=== PATIENT | female | born 1995 | race Caucasian/White ===

== ENCOUNTER 2018-10-27 11:07 | Inpatient (IN) | payer MEDICAID ==
[~2018-10-27] VITALS: Ht 149.9 cm; Wt 53.3 kg
[2018-10-27 12:03] VITALS: Ht 149.9 cm; Wt 53.3 kg
[2018-10-27 12:04] VITALS: BP 89/58; PULSE 100; RESP 18
[2018-10-27] MEDS ORDERED: PNV11TAB PO (12:06)
[2018-10-27] MEDS: LACTATED RINGER'S 1,000 ML IV SCH (14:38)
--- NOTE | 2018-10-27 15:00 | PN ---
Triage Information Date/Time Reason for visit: Abd/pelvic pain Weeks of Gestation Patient is a 23-year-old 2 para 1 at 26 weeks and 6 days of gestation with estimated date of delivery January 27, 2019 She presents with chief complaint of abdominal pain and right-sided lower back pain She reports positive movement, denies contractions, denies any vaginal bleeding or leaking fluid She denies any fever /Para 2 para 1 Diabetes: none Hypertention: none Objective Vital Signs Date Temp Pulse Resp B/P (MAP) Pulse Ox O2 O2 Flow FiO2 Time Delivery Rate 10/27/18 98.4 100 18 89/58 (68) 12:04 Heart Rate: 140's Heart Rate Comments heart rate tracing category 1 Contractions: None Results/Medications Results 24 hrs Laboratory Tests Test 10/27/18 11:10 Urine Color ABI Urine Clarity SLIGHTLY CLOUDY A Urine pH 6.0 Urine Specific [place] 1.015 Urine Ketones NEGATIVE Urine Nitrite NEGATIVE Urine Bilirubin 1+ H Urine Urobilinogen 2+ H Urine Leukocyte Esterase NEGATIVE Urine Microscopic RBC 0 Urine Microscopic WBC 2 Urine Hemoglobin NEGATIVE Urine Glucose NEGATIVE Urine Total Protein NEGATIVE Medications Current Medications Lactated Ringer's 1,000 ml @ 250 mls/hr Q4H IV Last administered on 10/27/18at 14:38; Admin Dose 250 MLS/HR; Start 10/27/18 at 13:30 Imaging Results PROCEDURE: Obstetric ultrasound CLINICAL INDICATION: Pain , labor TECHNIQUE: Multiple transverse and longitudinal grayscale images of the pelvis were obtained transabdominally and transvaginally.. COMPARISON: None FINDINGS: The cervix is closed with a length of 2.95 cm. There is a single live intrauterine gestation. Cardiac activity is present with 131 beats per minute. There is a vertex presentation. The placenta is anterior. There is no evidence for an abruption or placenta pr evia. MVP = 6.8 cm. RPTAT: AA IMPRESSION: Cervix length measures 2.95 cm. .Wes Phillips MD, MD Date Time Electronically viewed and signed by .Wes Phillips MD, MD on 10/27/2018 13:42 .S/ CC: ADRIANA MARIE MD [phone] Disposition: Discharge Assessment/Plan Patient received IV fluid She was instructed to increase p.o. hydration Urine culture was sent Patient instructed to follow-up with her own BANK CLERK in 1 to 2 days ADRIANA MARIE MD October 27, 2018 15:00
[2018-10-27] MEDS ORDERED: TERBUTALINE 1 MG/ML INJ SC ONE ×2 (15:30→17:00)
[2018-10-27] MEDS ORDERED: CEFTRIAXONE 1 GM/50 ML (PMX) 50 ML IVPB ONE (17:00)
--- NOTE | 2018-10-27 18:57 | HP ---
Date/Time of Note Date/Time of Note DATE: 10/27/18 TIME: 18:53 OB - History Hx of Present Free Text/Dictation Patient is a 23-year-old 2 para 1 at 26 weeks and 6 days of gestation with estimated date of delivery January 27, 2019 She presents with chief complaint of abdominal pain and right-sided lower back pain/right-sided CVA tenderness She reports positive movement, denies feeling contractions, denies any vaginal bleeding or leaking fluid She denies any fever Estimated Due Date: Jan 27, 2019 : 2 Para: 1 Care: Good Care Past Family/Social History * Past Medical, Surgical, Family and Obstetric Histories reviewed from chart. OB Admission Exam Vital Signs Vital Signs Vital Signs Date Temp Pulse Resp B/P (MAP) Pulse Ox O2 O2 Flow FiO2 Time Delivery Rate 10/27/18 98.4 100 18 89/58 (68) 12:04 Physical Exam HEENT: WNL Heart: Rhythm Normal Lungs: Clear, Equal Abdomen: WNL Extremities: Normal Reflexes: Normal Membranes: Intact Heart Rate: 140's Accelerations: Accelerations Present Decelerations: No Decelerations Varibility: Moderate Contractions on Admission: < 5 Minutes Apart Intensity: Moderate Last 72 hours Lab Results PROCEDURE: Obstetric ultrasound CLINICAL INDICATION: Pain , labor TECHNIQUE: Multiple transverse and longitudinal grayscale images of the pelvis were obtained transabdominally and transvaginally.. COMPARISON: None FINDINGS: The cervix is closed with a length of 2.95 cm. There is a single live intrauterine gestation. Cardiac activity is present with 131 beats per minute. There is a vertex presentation. The placenta is anterior. There is no evidence for an abruption or placenta previa. MVP = 6.8 cm. RPTAT: AA IMPRESSION: Cervix length measures 2.95 cm. .Wes Phillips MD, Date Time Electronically viewed and signed by .Wes Phillips MD, on 10/27/2018 13:42 .S/ CC: ADRIANA MARIE MD [id number] PROCEDURE: US OB. CLINICAL INDICATION: labor at 26 weeks gestational age. Uncertain size and dates. TECHNIQUE: Multiple sonographic images of the uterus were obtained. The images were reviewed on a PACS workstation. COMPARISON: No prior studies are available for comparison. FINDINGS: There is a single live intrauterine gestation. heart rate is 148 beats per minute. Measurements were made in order to determine age. The results are as follows: BPD = 7.45 cm. HC = 26.50 cm. AC = 22.56 cm. FL = 4.98 cm. Estimated weight is 1049 +/- 157 grams. LMP growth percentile is 55%. Menstrual age by ultrasound dates is 28 weeks 1 day. The estimated date of delivery is 01/18/2019. Position is cephalic and placenta is anterior grade 1. There is no evidence for an abruption or placenta previa. IMPRESSION: 1. Single live intrauterine gestation of 28 weeks 1 day gestational age by ultrasound dates. 2. The estimated date of delivery is 01/18/2019. RPTAT: QQ .Harsh Gandara MD, MD Date Time Electronically viewed and signed by .Harsh Gandara MD, MD on 10/27/2018 19:55 .R/ CC: ADRIANA MARIE MD [id number] OB Assessment/Plan Reason for admission: labor Other plan: Admit to antepartum Patient received IV fluid and terbutaline x2 doses and still nathaly We will start magnesium sulfate for prevention of labor and neuro protection Betamethasone for lung maturity Continue with IV antibiotics Urine culture pending Perinatology consult Copies To: CC: REID GRAVES ; ADRIANA MARIE MD October 27, 2018 18:57
[2018-10-27] MEDS ORDERED: MAGNESIUM SULFATE 4 GM/100 ML 100 ML IV ONE (19:00)
[2018-10-27] MEDS: CEFTRIAXONE 1 GM/50 ML (PMX) 50 ML IVPB SCH (19:00)
[2018-10-27] MEDS ORDERED: POTASSIUM CHLORIDE (SR) 10 MEQ TAB PO ONE (20:30)
[2018-10-27] MEDS: MAGNESIUM SULFATE 20 GM/500 ML 500 ML IV SCH (21:06)
[2018-10-27] MEDS: BETAMET NA PHOS/AC(6 MG/ML) 2 ML INJ SYG IM SCH (22:42)
[2018-10-28] MEDS: SOD CHLORIDE 0.9% 1,000 ML IV SCH ×2 (06:12→18:02)
[2018-10-28] MEDS: MAGNESIUM SULFATE 20 GM/500 ML 500 ML IV SCH (07:35)
[2018-10-28] MEDS ORDERED: POTASSIUM CHLORIDE (SR) 20 MEQ TAB PO ONE (08:00)
[2018-10-28] MEDS ORDERED: POTASSIUM CHLORIDE (SR) 10 MEQ TAB PO ONE (08:30)
[2018-10-28] MEDS ORDERED: POTASSIUM CHLORIDE (SR) 20 MEQ TAB PO STA (13:30)
[2018-10-28] MEDS ORDERED: POTASSIUM CHLORIDE (SR) 10 MEQ TAB PO SCH (14:00)
--- NOTE | 2018-10-28 18:01 | QN ---
Documentation Comment 27+wks labor No CTXs NST reassuring Portia No CTXs pelvic deferred --->Possible discharge home tomorrow --->stop Mg after 24 hrs of last dose of steroid YUE SUAREZ M.D. October 28, 2018 18:01
[2018-10-28] MEDS: CEFTRIAXONE 1 GM/50 ML (PMX) 50 ML IVPB SCH (19:21)
[2018-10-28] MEDS ORDERED: AL HYDROX/MG HYDROX/SIMETH 30 ML CUP PO PRN (21:00)
[2018-10-28] MEDS ORDERED: ACETAMINOPHEN 325 MG TAB PO PRN (21:00)
[2018-10-28] MEDS ORDERED: MAGNESIUM SULFATE 20 GM/500 ML 500 ML IV SCH (21:00)
[2018-10-28] MEDS: BETAMET NA PHOS/AC(6 MG/ML) 2 ML INJ SYG IM SCH (22:45)
[2018-10-29] MEDS: LACTATED RINGER'S 1,000 ML IV SCH ×5 (04:37→08:00)
[2018-10-29] MEDS: SOD CHLORIDE 0.9% 1,000 ML IV SCH ×7 (06:05→09:14)
[2018-10-29] MEDS: FERROUS SULFATE (EC) 325 MG TAB PO SCH ×3 (07:58→21:00)
[2018-10-29] MEDS: PRENATAL VITAMIN PO SCH (09:13)
--- NOTE | 2018-10-29 10:52 | QN ---
Documentation Comment 23-year-old 3 para 1 at 27 weeks and 1 day of this gestation with estimated date of delivery January 27, 2019 She was admitted for labor Status post steroids currently on magnesium sulfate which will be stopped at 10:40 PM Patient was noted to have elevated liver function test also complaining of right-sided abdominal pain and generalized itching Abdominal ultrasound today consistent with multiple cholelithiasis Bile acids were sent She reports positive movement, denies feeling contractions, denies any vaginal bleeding or leaking fluid She denies any fever heart rate tracing appropriate for gestational age [place] none Vital signs stable VS - Last 72 Hours, by Label Date Temp Pulse Resp B/P (MAP) Pulse Ox O2 O2 Flow FiO2 Time Delivery Rate 10/27/18 98.4 100 18 89/58 (68) 12:04 Hematology - 72 Hrs Test 10/27/18 19:00 10/28/18 23:19 10/29/18 06:10 Hematocrit 27.2 % (37.0-47.0) 28.1 % (37.0-47.0) 29.4 % (37.0-47.0) L L L Hemoglobin 9.4 9.5 9.5 g/dl (12.0-16.0) L g/dl (12.0-16.0) g/dl (12.0-16.0) L L Mean Corpuscular 32.1 pg (29.0-33.0) 31.8 33.1 Hemoglobin pg (29.0-33.0) pg (29.0-33.0) H Mean Corpuscular 34.6 33.8 32.3 Hemoglobin Concent g/dl (32.0-37.0) g/dl (32.0-37.0) g/dl (32.0-37.0) Mean Corpuscular 92.8 94.0 102.4 Volume fl (82.0-101.0) fl (82.0-101.0) fl (82.0-101.0) H Mean Platelet 11.6 fl (7.4-10.4) 11.8 fl (7.4-10.4) 12.7 fl (7.4-10.4) Volume H H H Platelet Count 232 258 265 10^3/UL (140-415) 10^3/UL (140-415) 10^3/UL (140-415) Red Blood Count 2.93 2.99 2.87 10^6/ul (4.20-5.40) 10^6/ul (4.20-5.40 10^6/ul (4.20-5.40 L ) L ) L Red Cell 12.6 % (11.5-14.5) 12.9 % (11.5-14.5) 13.0 % (11.5-14.5) Distribution Width White Blood Count 6.7 6.4 5.2 10^3/ul (4.8-10.8) 10^3/ul (4.8-10.8) 10^3/ul (4.8-10.8) Chemistry Test 10/27/18 19:00 10/28/18 00:29 10/28/18 05:32 10/28/18 12:09 Sodium Level 139 mmol/L (135-144 ) Potassium 2.4 2.9 3.3 Level mmol/L (3.5-5.1 mmol/L (3.5-5. mmol/L (3.5-5. ) *L 1) *L 1) L Chloride Level 104 mmol/L (97-110) Carbon Dioxide 22 Level mmol/L (21-31) Anion Gap 13 (5-13) Blood Urea 9 mg/dl (7-20) Nitrogen Creatinine 0.52 mg/dl (0.44-1.0 0) Est Glomerular > 60 Filtrat mL/min (>60) Rate mL/min Glucose Level 151 mg/dl (70-220) Calcium Level 8.6 mg/dl (8.4-10.2 ) Total 0.4 Bilirubin mg/dl (0.2-1.3) Direct 0.00 Bilirubin mg/dl (0.00-0.2 0) Indirect 0.4 Bilirubin mg/dl (0-1.1) Aspartate Amino 139 Transf (AST/SGO IU/L (15-46) H T) Alanine 188 Aminotransferas IU/L (13-69) H e (ALT/SGPT) Alkaline 237 Phosphatase IU/L (42-121) H Total Protein 6.5 g/dl (6.1-8.1) Albumin 3.1 g/dl (3.3-4.9) L Globulin 3.40 g/dl (1.3-3.2) H Albumin/Globuli 0.91 n Ratio Magnesium 5.9 7.5 6.7 Level mg/dl (1.7-2.5 mg/dl (1.7-2.5 mg/dl (1.7-2.5 ) *H ) *H ) *H Test 10/28/18 18:56 10/28/18 19:00 10/28/18 23:16 10/29/18 06:08 Potassium 3.6 3.6 3.9 Level mmol/L (3.5-5.1 mmol/L (3.5-5. mmol/L (3.5-5. ) 1) 1) Magnesium 6.9 6.0 6.0 Level mg/dl (1.7-2.5) mg/dl (1.7-2.5 mg/dl (1.7-2.5 *H ) *H ) *H Sodium Level 133 136 mmol/L (135-14 mmol/L (135-14 4) L 4) Chloride Level 102 107 mmol/L (97-110 mmol/L (97-110 ) ) Carbon Dioxide 22 21 Level mmol/L (21-31) mmol/L (21-31) Anion Gap 9 (5-13) 8 (5-13) Blood Urea 8 mg/dl 9 mg/dl Nitrogen (7-20) (7-20) Creatinine 0.55 0.47 mg/dl (0.44-1. mg/dl (0.44-1. 00) 00) Est Glomerular > 60 > 60 Filtrat mL/min (>60) mL/min (>60) Rate mL/min Glucose Level 153 178 mg/dl (70-220) mg/dl (70-220) Calcium Level 7.0 6.5 mg/dl (8.4-10. mg/dl (8.4-10. 2) L 2) L Total 0.4 0.4 Bilirubin mg/dl (0.2-1.3 mg/dl (0.2-1.3 ) ) Direct 0.00 0.00 Bilirubin mg/dl (0.00-0. mg/dl (0.00-0. 20) 20) Indirect 0.4 0.4 Bilirubin mg/dl (0-1.1) mg/dl (0-1.1) Aspartate Amino 209 183 Transf (AST/SGO IU/L (15-46) IU/L (15-46) T) H H Alanine 243 218 Aminotransferas IU/L (13-69) IU/L (13-69) e (ALT/SGPT) H H Alkaline 275 242 Phosphatase IU/L (42-121) IU/L (42-121) H H Total Protein 6.4 6.3 g/dl (6.1-8.1) g/dl (6.1-8.1) Albumin 3.3 3.1 g/dl (3.3-4.9) g/dl (3.3-4.9) L Globulin 3.10 3.20 g/dl (1.3-3.2) g/dl (1.3-3.2) Albumin/Globuli 1.06 0.96 n Ratio Laboratory Tests Test 10/28/18 12:09 10/28/18 18:56 10/28/18 19:00 10/28/18 23:16 Potassium Level 3.3 mmol/L 3.6 mmol/L 3.6 mmol/L Magnesium Level 6.7 mg/dl 6.9 mg/dl 6.0 mg/dl Sodium Level 133 mmol/L Chloride Level 102 mmol/L Carbon Dioxide 22 mmol/L Level Anion Gap 9 Blood Urea 8 mg/dl Nitrogen Creatinine 0.55 mg/dl Est Glomerular > 60 mL/min Filtrat Rate mL/min Glucose Level 153 mg/dl Calcium Level 7.0 mg/dl Total Bilirubin 0.4 mg/dl Direct Bilirubin 0.00 mg/dl Indirect Bilirubin 0.4 mg/dl Aspartate Amino 209 IU/L Transf (AST/SGOT) Alanine 243 IU/L Aminotransferase ( ALT/SGPT) Alkaline 275 IU/L Phosphatase Total Protein 6.4 g/dl Albumin 3.3 g/dl Globulin 3.10 g/dl Albumin/Globulin 1.06 Ratio Test 10/28/18 23:19 10/29/18 06:08 10/29/18 06:10 10/29/18 08:24 White Blood Count 6.4 10^3/ul 5.2 10^3/ul Red Blood Count 2.99 10^6/ul 2.87 10^6/ul Hemoglobin 9.5 g/dl 9.5 g/dl Hematocrit 28.1 % 29.4 % Mean Corpuscular 94.0 fl 102.4 fl Volume Mean Corpuscular 31.8 pg 33.1 pg Hemoglobin Mean Corpuscular 33.8 g/dl 32.3 g/dl Hemoglobin Concent Red Cell 12.9 % 13.0 % Distribution Width Platelet Count 258 10^3/UL 265 10^3/UL Mean Platelet 11.8 fl 12.7 fl Volume Immature 0.800 % 1.100 % Granulocytes % Neutrophils % 67.8 % 76.9 % Lymphocytes % 22.9 % 19.5 % Monocytes % 7.5 % 1.9 % Eosinophils % 0.8 % 0.2 % Basophils % 0.2 % 0.4 % Nucleated Red 0.0 /100WBC 0.0 /100WBC Blood Cells % Immature 0.050 10^3/ul 0.060 10^3/ul Granulocytes # Neutrophils # 4.3 10^3/ul 4.0 10^3/ul Lymphocytes # 1.5 10^3/ul 1.0 10^3/ul Monocytes # 0.5 10^3/ul 0.1 10^3/ul Eosinophils # 0.1 10^3/ul 0.0 10^3/ul Basophils # 0.0 10^3/ul 0.0 10^3/ul Nucleated Red 0.0 10^3/ul 0.0 10^3/ul Blood Cells # Sodium Level 136 mmol/L Potassium Level 3.9 mmol/L Chloride Level 107 mmol/L Carbon Dioxide 21 mmol/L Level Anion Gap 8 Blood Urea 9 mg/dl Nitrogen Creatinine 0.47 mg/dl Est Glomerular > 60 mL/min Filtrat Rate mL/min Glucose Level 178 mg/dl Calcium Level 6.5 mg/dl Magnesium Level 6.0 mg/dl Total Bilirubin 0.4 mg/dl Direct Bilirubin 0.00 mg/dl Indirect Bilirubin 0.4 mg/dl Aspartate Amino 183 IU/L Transf (AST/SGOT) Alanine 218 IU/L Aminotransferase ( ALT/SGPT) Alkaline 242 IU/L Phosphatase Total Protein 6.3 g/dl Albumin 3.1 g/dl Globulin 3.20 g/dl Albumin/Globulin 0.96 Ratio Hepatitis B NEGATIVE Surface Antigen Hepatitis B Core NEGATIVE Total Antibody Hepatitis C NEGATIVE Antibody Current Medications Medications Dose Sig/Blanca Start Time Status Last (Trade) Ordered Route PRN Stop Time Admin Dose Reason Admin Lactated 1,000 ml @ Q4H IV 10/27/18 DC 10/29/18 Ringer's 250 mls/hr 13:30 07:59 10/29/18 08:36 Terbutaline 0.25 mg ONCE ONCE 10/27/18 DC Sulfate SC 15:30 (Brethine) 10/27/18 15:31 Sodium 1,000 ml @ Q8H IV 10/27/18 10/29/18 Chloride 125 mls/hr 17:00 09:14 Ceftriaxone 50 ml @ ONCE ONCE 10/27/18 DC 10/27/18 Sodium 100 mls/hr IVPB 17:00 17:31 10/27/18 17:29 Terbutaline 0.25 mg ONCE ONCE 10/27/18 DC 10/27/18 Sulfate SC 17:00 16:44 (Brethine) 10/27/18 17:01 Sodium 1,000 ml @ Q8H IV 10/27/18 DC 10/28/18 Chloride 125 mls/hr 18:53 18:02 10/29/18 08:36 Magnesium 100 ml @ ONCE ONCE 10/27/18 DC 10/27/18 Sulfate 200 mls/hr IV 19:00 20:32 10/27/18 19:29 Magnesium 500 ml @ [id number] IV 10/27/18 DC 10/28/18 Sulfate 37.5 mls/hr 18:53 07:35 10/28/18 21:26 12 mg Q24H IM 10/27/18 DC 10/28/18 Betamethasone 19:00 22:45 10/28/18 19:01 Acet/Betameth SodPhos ([place]estone Soluspan) Ceftriaxone 50 ml @ Q24H IVPB 10/27/18 DC 10/28/18 Sodium 100 mls/hr 19:00 19:21 10/29/18 09:41 Potassium 30 meq ONCE ONCE 10/27/18 DC 10/27/18 Chloride PO 20:30 21:45 (Klor-Con 10) 10/27/18 20:31 Potassium 40 meq ONCE ONCE 10/28/18 DC Chloride PO 08:00 (Klor-Con 20) 10/28/18 08:01 Potassium 40 meq ONCE ONCE 10/28/18 DC 10/28/18 Chloride PO 08:30 08:20 (Klor-Con 10) 10/28/18 08:31 Potassium 20 meq ONCE STAT 10/28/18 DC Chloride PO 13:30 (Klor-Con 20) 10/28/18 13:32 Potassium 20 meq ONCE PO 10/28/18 DC 10/28/18 Chloride 14:00 14:28 (Klor-Con 10) 10/28/18 20:00 Magnesium 500 ml @ Q20H IV 10/28/18 10/28/18 Sulfate 25 mls/hr 21:00 21:50 Al 30 ml Q6H PRN 10/28/18 Hydrox/Mg PO 21:00 Hydrox/Simeth GASTROINTESTI icone NAL UPSET (Mag-Al Plus) 650 mg Q6H PRN 10/28/18 Acetaminophen PO MILD 21:00 (Tylenol PAIN(1-3)OR Tab) ELEVATED TEMP Prenat 1 tab DAILY PO 10/29/18 10/29/18 Multivit/ 09:00 09:13 [place]/Iron/Fo lic Ac () Ferrous 325 mg BID PO 10/28/18 10/29/18 Sulfate 21:00 09:13 (Ferrous Sulfate (Ec)) PROCEDURE: US Abdomen (right upper quadrant). CLINICAL INDICATION: Elevated liver enzymes in a patient with 27 weeks TECHNIQUE: Multiple real-time longitudinal and transverse images of the right upper quadrant of the abdomen were acquired utilizing a curved array transducer. Images were reviewed on a high-resolution PACS workstation. COMPARISON: None FINDINGS: The liver is normal in size and echogenicity without focal mass or intrahepatic biliary dilatation. There is normal hepatopedal flow within the main portal vein. Liver measures 14.4 cm. Multiple gallstones are identified. There is no pericholecystic fluid or gallbladder wall thickening . No intra or extrahepatic biliary dilatation is seen. The common bile duct measures 3 mm in maximal dimension. The visualized portions of the pancreas are unremarkable with obscuration of the tail of the pancreas. No free fluid is identified. The right kidney measures 10 cm in length. There is normal echogenicity within the right kidney. Mild to moderate right-sided hydronephrosis. There is no per inephric fluid collection. No mass or calculi. IMPRESSION: 1. Cholelithiasis with no evidence of cholecystitis. 2. No intrahepatic or extrahepatic biliary ductal dilation. 3. Mild to moderate right-sided hydronephrosis likely secondary to . RPTAT: PP karma Gamez Physician Date Time Electronically viewed and signed by karma Gamez Physician on 10/29/2018 09:09 rV/ CC: TAD FLORES MD [id number] Assessment and plan Discontinue IV antibiotics Continue with magnesium sulfate until 10:40 PM Perinatology consult pending Social service consult pain bleeding ADRIANA MARIE MD October 29, 2018 10:52
[2018-10-30] MEDS: PRENATAL VITAMIN PO SCH (09:19)
[2018-10-30] MEDS: FERROUS SULFATE (EC) 325 MG TAB PO SCH ×2 (09:19→22:06)
[2018-10-30] MEDS ORDERED: hydrOXYzine HCL 10 MG TAB NGT PRN (14:00)
[2018-10-30] MEDS ORDERED: URSODIOL 300 MG CAP PO SCH (16:00)
--- NOTE | 2018-10-31 01:08 | QN ---
Documentation Comment Late entry note. Patient seen at 1833 on 10/30/2018 23 years old 3 para 2-0-0-2 with single intrauterine at 27 weeks and 2 days admitted for threatened labor. 1. Threatened labor: she has received magnesium sulfate and betamethasone. Currently is steroid benefited. Cervical length is 2.9 cm. heart rate is category 1. She has occasional uterine contractions 2. Cholelithiasis with no evidence of cholecystitis. 3. Suspect cholestasis: Patient complaining of severe itching all over her body including palms and soles. Actigall 300 mg every 8 hours and hydroxyzine 10 mg every 12 hours started today. AST, ALT is elevated. Bile acid is pending 4. Elevated AST and ALT, could be secondary to cholelithiasis or cholestasis. 5. Anemia she is currently on ferrous sulfate 325 mg twice daily REID GRAVES October 31, 2018 01:08
[2018-10-31] MEDS: URSODIOL 300 MG CAP PO SCH ×3 (05:33→21:22)
[2018-10-31] MEDS: hydrOXYzine HCL 10 MG TAB PO PRN ×2 (05:33→17:03)
[2018-10-31] MEDS: PRENATAL VITAMIN PO SCH (08:53)
[2018-10-31] MEDS: FERROUS SULFATE (EC) 325 MG TAB PO SCH ×2 (08:53→21:22)
[2018-10-31] MEDS ORDERED: hydrOXYzine HCL 10 MG TAB PO ONE (12:00)
--- NOTE | 2018-11-01 02:32 | QN ---
Documentation Comment Late entry note. Patient seen at 21:00 on 10/31/2018 23 years old 3 para 2-0-0-2 with single intrauterine at 27 weeks and 3 days admitted for threatened labor. 1. Threatened labor: she has received magnesium sulfate and betamethasone. Currently is steroid benefited. Cervical length is 2.9 cm. heart rate is category 1. She has no uterine contractions 2. Cholelithiasis with no evidence of cholecystitis. 3. Suspect cholestasis: Patient complaining of severe itching all over her body including palms and soles. Actigall 300 mg every 8 hours and hydroxyzine 10 mg every 12 hours started yesterday. She is currently feeling much better. AST, ALT is elevated and increasing compared to yesterday. Bile acid is pending 4. Anemia she is currently on ferrous sulfate 325 mg twice daily REID GRAVES November 01, 2018 02:32
[2018-11-01] MEDS: hydrOXYzine HCL 10 MG TAB PO PRN ×2 (05:30→18:28)
[2018-11-01] MEDS: URSODIOL 300 MG CAP PO SCH ×3 (05:30→21:49)
[2018-11-01] MEDS: PRENATAL VITAMIN PO SCH (08:45)
[2018-11-01] MEDS: FERROUS SULFATE (EC) 325 MG TAB PO SCH ×2 (08:46→21:48)
--- NOTE | 2018-11-01 18:41 | PN ---
Date/Time of Note Date/Time of Note DATE: 11/01/18 TIME: 18:38 OB Subjective Subjective Subjective Patient comfortable. Denies any leaking of fluid, vaginal bleeding decreased movement or contractions. Reports mild itching of the both hands dorsum and palms as well as arms and lower extremity. She reports improvement of symptoms with ursodiol. 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09 OB Assessment/Plan Other Assessment: IUP at 27 weeks and 4 days Admitted for itching of extremities, especially palms and soles elevated Elevated liver function tests, history of cholestasis and prior to Bile acid pending Status post a steroid On today 300 mg p.o. 3 times daily and Atarax for itching Status post perinatology consultation Continue expectant management in house Follow-up with the results of bile acids Continuous NST every shift Will up with perinatologist tomorrow TYRONE LUIS MD November 01, 2018 18:41
[2018-11-02] MEDS: URSODIOL 300 MG CAP PO SCH ×3 (06:49→22:02)
[2018-11-02] MEDS: FERROUS SULFATE (EC) 325 MG TAB PO SCH ×2 (09:06→20:49)
[2018-11-02] MEDS: PRENATAL VITAMIN PO SCH (09:06)
[2018-11-02] MEDS: hydrOXYzine HCL 10 MG TAB PO PRN ×2 (09:08→22:02)
[2018-11-03] MEDS: URSODIOL 300 MG CAP PO SCH ×3 (06:11→21:55)
[2018-11-03] MEDS: hydrOXYzine HCL 10 MG TAB PO PRN (09:09)
[2018-11-03] MEDS: PRENATAL VITAMIN PO SCH (09:09)
[2018-11-03] MEDS: FERROUS SULFATE (EC) 325 MG TAB PO SCH ×2 (09:09→21:54)
[2018-11-03] MEDS ORDERED: POTASSIUM CHLORIDE (SR) 20 MEQ TAB PO STA (09:47)
--- NOTE | 2018-11-03 13:35 | QN ---
Documentation Comment 23-year-old 3 para 2 at 27 weeks and 5 days of gestation with estimated date of delivery January 27, 2019 Patient admitted for ; 1. labor status post magnesium sulfate, status post betamethasone for lung maturity 2. cholelithiasis with no evidence of cholecystitis 3. Suspected for cholestasis; total bile acids 9.8 currently on Actigall 300 mg every 8 hours and Atarax as needed 4. Hypokalemia-potassium replacement ordered 5. Anemia currently on iron Patient reports positive movement, denies uterine contractions, denies vaginal bleeding or leaking fluid heart rate tracing appropriate for gestational age Vital signs stable Chemistry Test 10/31/18 14:50 11/03/18 07:07 Sodium Level 133 mmol/L (135-144) L 133 mmol/L (135-144) L Potassium Level 3.4 mmol/L (3.5-5.1) L 2.8 mmol/L (3.5-5.1) *L Chloride Level 98 mmol/L (97-110) 95 mmol/L (97-110) L Carbon Dioxide Level 25 mmol/L (21-31) 28 mmol/L (21-31) Anion Gap 10 (5-13) 10 (5-13) Blood Urea Nitrogen 16 mg/dl (7-20) 15 mg/dl (7-20) Creatinine 0.67 mg/dl (0.44-1.00) 0.50 mg/dl (0.44-1.00) Est Glomerular Filtrat > 60 mL/min (>60) > 60 mL/min (>60) Rate mL/min Glucose Level 135 mg/dl (70-220) 120 mg/dl (70-220) Calcium Level 9.6 mg/dl (8.4-10.2) 9.6 mg/dl (8.4-10.2) Total Bilirubin 0.3 mg/dl (0.2-1.3) 0.4 mg/dl (0.2-1.3) Direct Bilirubin 0.00 mg/dl (0.00-0.20) 0.00 mg/dl (0.00-0.20) Indirect Bilirubin 0.3 mg/dl (0-1.1) 0.4 mg/dl (0-1.1) Aspartate Amino 318 IU/L (15-46) H 152 IU/L (15-46) H Transf (AST/SGOT) Alanine 416 IU/L (13-69) H 348 IU/L (13-69) H Aminotransferase (ALT/SGPT) Alkaline Phosphatase 220 IU/L (42-121) H 211 IU/L (42-121) H Total Protein 6.5 g/dl (6.1-8.1) 7.0 g/dl (6.1-8.1) Albumin 3.4 g/dl (3.3-4.9) 3.7 g/dl (3.3-4.9) Globulin 3.10 g/dl (1.3-3.2) 3.30 g/dl (1.3-3.2) H Albumin/Globulin Ratio 1.09 1.12 Assessment and plan We will discuss with Dr. Dumont/perinatologist regarding recommendations ADRIANA MARIE MD November 03, 2018 13:35
--- NOTE | 2018-11-04 01:09 | CONS ---
DATE OF ADMISSION: 10/27/2018 DATE OF CONSULTATION: 11/03/2018 TYPE OF CONSULTATION: Perinatology. HISTORY OF PRESENT ILLNESS: The patient is at 27 weeks and 6 days with cholestasis and liver enzymes elevation. She was started on Actigall 2 days ago. I spoke to the doctor diagnostic cardiac sonographer yesterday and the same today. My recommendation is for the patient to be discharged home on Actigall with t esting twice weekly. Dictated By: ROBBIE MIGUEL MD ST/NTS Conf#: [id number] DID#: [id number] CC: REID GRAVES MD;*EndCC*
[2018-11-04] MEDS ORDERED: POTASSIUM CHLORIDE (SR) 20 MEQ TAB PO ONE (02:55)
[2018-11-04] MEDS: URSODIOL 300 MG CAP PO SCH (06:12)
[2018-11-04] MEDS: FERROUS SULFATE (EC) 325 MG TAB PO SCH (09:56)
[2018-11-04] MEDS: PRENATAL VITAMIN PO SCH (09:56)
--- NOTE | 2018-11-04 13:31 | DS ---
Date/Time of Note Date/Time of Note DATE: 11/04/18 TIME: 13:31 Obstetrical Discharge Record Final Diagnosis Final Diagnosis: not delivered Other Final Diagnosis 23 years old 3 para 2-0-0-2 with single intrauterine at 27 weeks and 6 days admitted for threatened labor, cholelithiasis, cholecystitis with elevated liver enzyme. 1. Threatened labor: she has received magnesium sulfate and betamethasone. Currently is steroid benefited. Cervical length is 2.9 cm. heart rate is category 1. She has no uterine contractions 2. Cholelithiasis with no evidence of cholecystitis. 3. Cholestasis with elevated liver enzyme and bile acid of 9.8. She is currently on Actigall 300 mg every 8 hours and hydroxyzine 10 mg nightly. She is currently feeling much better. She discharged home with follow-up antepartum testing twice a week. She has appointment with perinatology on 11/07/2018. 4. Anemia she is currently on ferrous sulfate 325 mg twice daily Sign and symptom of labor, preeclampsia, kick count discussed in detail with patient. She expressed understanding. She discharged home in stable condition with follow-up antepartum testing as noted above. Patient discussed with Dr. Dumont, who recommended discharge home with above follow-up. Condition on Discharge Physical Assessment Voiding: Yes Bowel Movement: Yes Breast: Soft, non-tender Calf Tenderness: No Patient Condition: Stable REID GRAVES November 04, 2018 13:31
--- NOTE | 2018-11-04 13:31 | PN ---
Date/Time of Note Date/Time of Note DATE: 11/04/18 TIME: 13:24 OB Subjective Subjective Subjective Patient seen and examined. She states good movement. She denies nausea, vomiting, shortness of breath, chest pain, abdominal pain between contractions, headache, visual changes, vaginal bleeding or LOF. She states itching is decreasing since starting medication OB Objective Objective Objective General: Patient appears well, alert and oriented, NAD, appropriate mood and affect ABD: gravid, soft, non-tender. Back: No CVA tenderness (B/L) LE: Mild edema. No clubbing, cyanosis, edema, thigh or calf tenderness bilaterally FHT:.130 bpm , moderate variability with acceleration, no deceleration-category I Contractions: None OB Assessment/Plan Other plan: 23 years old 3 para 2-0-0-2 with single intrauterine at 27 weeks and 6 days admitted for threatened labor, cholelithiasis, cholecystitis with elevated liver enzyme. 1. Threatened labor: she has received magnesium sulfate and betamethasone. Currently is steroid benefited. Cervical length is 2.9 cm. heart rate is category 1. She has no uterine contractions 2. Cholelithiasis with no evidence of cholecystitis. 3. Cholestasis with elevated liver enzyme and bile acid of 9.8. She is currently on Actigall 300 mg every 8 hours and hydroxyzine 10 mg nightly. She is currently feeling much better. She discharged home with follow-up antepartum testing twice a week. She has appointment with perinatology on 11/07/2018. 4. Anemia she is currently on ferrous sulfate 325 mg twice daily Sign and symptom of labor, preeclampsia, kick count discussed in detail with patient. She expressed understanding. She discharged home in stable condition with follow-up antepartum testing as noted above. Patient discussed with Dr. Dumont, who recommended discharge home w ith above follow-up. REID GRAVES November 04, 2018 13:31
== END 2018-11-04 11:50 | disposition home or self-care (01) | DRG 831 ==
LOC: L-D 11:07 → OBT 11:07 → L-D 19:01 → PP1 10-28 23:57
PROVIDERS: ADMIT Obstetrics & Gynecology; ATTEND Obstetrics & Gynecology
DX: O99.612 Diseases of the digestive system complicating pregnancy, second trimester (principal); K83.1 Obstruction of bile duct; O26.612 Liver and biliary tract disorders in pregnancy, second trimester; O99.012 Anemia complicating pregnancy, second trimester; Z3A.27 27 weeks gestation of pregnancy
CPT/HCPCS: 36415; 76705; 76815; 76817; 76818; 80053; 81001; 81003; 83735; 83789; 84132; 85025; 86704; 86709; 86803; 87086; 87340; 96360; 96361; 96368; 96372; G0463; J0696; J0702; J3105; J3475; J7030; J7120

== ENCOUNTER 2018-11-05 12:46 | Outpatient (CLI) | payer MEDICAID ==
[~2018-11-05] VITALS: Ht 152.4 cm; Wt 55.3 kg
[~2018-11-05 12:46] MED LIST: PNV11TAB PO
[2018-11-05 12:53] VITALS: Ht 152.4 cm; Wt 55.3 kg
--- NOTE | 2018-11-05 14:31 | PN ---
Triage Information Date/Time Reason for visit: Patient is here for NST and BPP Weeks of Gestation 23-year-old 3 para 2 at 28 weeks and 1 day of gestation with estimated date of delivery January 27, 2019 Patient with gallstones and cholestasis of currently on Actigall Patient was recently discharged from the hospital for diagnosis of labor; status post magnesium sulfate; status post betamethasone for lung maturity She is here for NST and BPP Patient reports positive movement, denies vaginal bleeding leaking fluid, denies uterine contractions /Para 3 para 2 Diabetes: none Hypertention: none Additional information Gallstones and cholestasis of Objective Heart Rate: 140's Heart Rate Comments heart rate tracing appropriate for gestational age Contractions: None Results/Medications Imaging Results PROCEDURE: US OB biophysical profile. CLINICAL INDICATION: decreased movements, TECHNIQUE: Multiple sonographic images of the pelvis were obtained. The images were reviewed on a PACS workstation. COMPARISON: 10/30/18 FINDINGS: There is a single live intrauterine gestation. Cardiac activity is present with 152 beats per minute. There is a vertex presentation. The placenta is anterior. There is no evidence of placental abruption. ARIELA = 17.3 cm. Biophysical profile: movement 2/2 tone 2/2. breathing 2/2 ARIELA 2/2 Total 01/17 RPTAT: AA . IMPRESSION: Normal biophysical profile. . .Wes Phillips MD, Date Time Electronically viewed and signed by .Wes Phillips MD, on 11/05/2018 13:22 .S/ CC: REID GRAVES [id number] Disposition: Discharge Assessment/Plan kick count instructions were given Labor precautions were given Patient instructed to continue with Actigall Patient instructed to return in 48 hours for repeat NST and BPP Patient instructed to follow-up with [facility] in 1 to 2 days ADRIANA MARIE MD November 05, 2018 14:31
--- NOTE | 2018-11-05 14:31 | TRIAGE ---
OB Triage Datetime Report Generated by CPN: 11/05/2018 14:29 Datetime: 11/05/2018 14:26 Stage of : OB Triage Datetime: 11/05/2018 14:01 Maternal Assessment Level of Consciousness: Fully Conscious DTR's/Clonus: DTRs 1+ Headache: Denies Blurred Vision: No Respiratory Effort: Unlabored Breath Sounds, Left: Clear and Equal Breath Sounds, Right: Clear and Equal Nausea/Vomiting: Denies RUQ Epigastric Pain: Denies Facial Edema: None Labor Evaluation Frequency: NONE Monitor Mode: External Resting Tone [place]: Relaxed Heart Rate FHR Baseline Rate: 135 Monitor Mode: External US Variability: Moderate 6-25 bpm Accelerations: 15X15 Decelerations: None Category: Category I Pain Assessment Pain Scale: 0 Pain Presence: None/Denies Pain Type: N/A Pain Goal: 3 Vaginal Exam Membrane Status: Intact Datetime: 11/05/2018 13:14 Stage of : OB Triage Maternal Assessment Level of Consciousness: Fully Conscious DTR's/Clonus: DTRs 1+ Headache: Denies Breath Sounds, Left: Clear and Equal Breath Sounds, Right: Clear and Equal Nausea/Vomiting: Denies RUQ Epigastric Pain: Denies Labor Evaluation Frequency: NONE Monitor Mode: External Resting Tone [place]: Relaxed Heart Rate FHR Baseline Rate: 135 Monitor Mode: External US Variability: Moderate 6-25 bpm Accelerations: 15X15 Decelerations: None Category: Category I Pain Assessment Pain Scale: 0 Pain Presence: None/Denies Pain Type: N/A Pain Goal: 3 Vaginal Exam Membrane Status: Intact Datetime: 11/05/2018 12:32 Time of Arrival: 11/05/2018 12:32 EGA: 28.1 Arrived By: Ambulatory Arrived From: Home Chief Complaint: PT CAME IN FOR NST/BPP FOR CHOLESTASIS AND GALLSTONES Movement: Present Contractions: Denies/Absent Rupture of Membranes: Denies Vaginal Discharge: Denies Recent Sexual Intercouse: Denies Abdominal Trauma: Not Applicable Additional Patient Complaints: NONE Time Provider Notified: 11/05/2018 13:00 Provider Notified: FAZILAT Initial Plan: NST, BPP Datetime: 11/04/2018 11:17 Maternal Assessment Level of Consciousness: Fully Conscious Headache: Denies Blurred Vision: No Respiratory Effort: Unlabored Nausea/Vomiting: Denies RUQ Epigastric Pain: Denies Labor Evaluation Frequency: 0 Monitor Mode: External Resting Tone [place]: Relaxed Heart Rate FHR Baseline Rate: 145 Monitor Mode: External US Variability: Moderate 6-25 bpm Comments: fht's apporp. for ega 28.0 today Pain Presence: None/Denies Datetime: 11/04/2018 10:46 Stage of : Antepartum Maternal Assessment Level of Consciousness: Fully Conscious Headache: Denies Blurred Vision: No Respiratory Effort: Unlabored Nausea/Vomiting: Denies RUQ Epigastric Pain: Denies Datetime: 11/04/2018 07:16 Stage of : Antepartum Maternal Assessment Level of Consciousness: Fully Conscious DTR's/Clonus: DTRs 2+ Headache: Denies Blurred Vision: No Respiratory Effort: Unlabored Breath Sounds, Left: Clear and Equal Breath Sounds, Right: Clear and Equal Nausea/Vomiting: Denies RUQ Epigastric Pain: Denies Pain Presence: None/Denies Datetime: 11/04/2018 04:40 Temperature Route: Oral Pain Assessment Pain Scale: 0 Datetime: 11/03/2018 21:30 Labor Evaluation Frequency: 0 Monitor Mode: External Heart Rate FHR Baseline Rate: 140 Monitor Mode: External US FHR Baseline Changes: No Baseline Change Variability: Moderate 6-25 bpm Accelerations: 15X15 Decelerations: None Category: Category I Datetime: 11/03/2018 20:11 Assessment Type: Ongoing Assessment Maternal Assessment Level of Consciousness: Fully Conscious Maternal Assessment Level of Consciousness: Fully Conscious Headache: Denies Blurred Vision: No Respiratory Effort: Unlabored; Regular Rhythm; Equal Expansion Nausea/Vomiting: Denies RUQ Epigastric Pain: Denies Facial Edema: None Temperature Route: Oral Fall Risk Assessment History of Falling: (0) No Secondary Diagnosis: (0) No Ambulatory Aid: (0) Bedrest/Nurse Assist IV Therapy: (0) No Gait: (0) Normal/Bedrest/Immobile Mental Status: (0) Oriented to Own Ability Fall Score: 0 Fall Risk Score Definition: No Risk: No action required Pain Assessment Pain Scale: 0 Datetime: 11/03/2018 19:15 Stage of : Antepartum Datetime: 11/03/2018 15:27 Pain Presence: None/Denies Datetime: 11/03/2018 10:53 Comments: nst start Datetime: 11/03/2018 09:12 Labor Evaluation Frequency: 0 Monitor Mode: External Resting Tone [place]: Relaxed Datetime: 11/03/2018 09:02 Pain Presence: None/Denies Datetime: 11/03/2018 08:20 Assessment Type: Ongoing Assessment Maternal Assessment Level of Consciousness: Fully Conscious DTR's/Clonus: DTRs 2+; No Clonus Headache: Denies Blurred Vision: No Respiratory Effort: Unlabored; Regular Rhythm; Equal Expansion Breath Sounds, Left: Clear and Equal Breath Sounds, Right: Clear and Equal Nausea/Vomiting: Denies RUQ Epigastric Pain: Denies Facial Edema: None Fall Risk Assessment History of Falling: (0) No Secondary Diagnosis: (0) No Ambulatory Aid: (0) Bedrest/Nurse Assist Gait: (0) Normal/Bedrest/Immobile Mental Status: (0) Oriented to Own Ability Datetime: 11/03/2018 07:25 Stage of : Antepartum Datetime: 11/03/2018 07:15 Stage of : Antepartum Datetime: 11/03/2018 07:00 Labor Evaluation Frequency: none Monitor Mode: External Resting Tone [place]: Relaxed Pain Presence: None/Denies Pain Type: N/A Datetime: 11/03/2018 06:11 Stage of : Antepartum Datetime: 11/03/2018 06:00 Labor Evaluation Frequency: NONE Monitor Mode: External Resting Tone [place]: Relaxed Contraction Comments: PT DENIES CRAMPING Comments: PT STATES + FM Pain Presence: None/Denies Pain Type: N/A Datetime: 11/03/2018 05:00 Labor Evaluation Frequency: X2 Monitor Mode: External Duration (sec)2399: 40-60 Quality: Mild Resting Tone [place]: Relaxed Datetime: 11/03/2018 04:21 Stage of : Antepartum Pain Presence: None/Denies Pain Type: N/A Pain Assessment Comments: PT SLEEPING WITH EVEN UNLABORED BREATHING Datetime: 11/03/2018 04:00 Labor Evaluation Frequency: X3 Monitor Mode: External Duration (sec)2399: 40-80 Quality: Mild Resting Tone [place]: Relaxed Pain Presence: None/Denies Pain Type: N/A Datetime: 11/03/2018 03:00 Labor Evaluation Frequency: NONE Monitor Mode: External Resting Tone [place]: Relaxed Pain Presence: None/Denies Pain Type: N/A Datetime: 11/03/2018 02:00 Labor Evaluation Frequency: NONE Monitor Mode: External Resting Tone [place]: Relaxed Pain Presence: None/Denies Pain Type: N/A Pain Assessment Comments: PT SLEEPING BUT EASILY AROUSED Datetime: 11/03/2018 01:00 Labor Evaluation Frequency: NONE Monitor Mode: External Resting Tone [place]: Relaxed Pain Presence: None/Denies Pain Type: N/A Datetime: 11/03/2018 00:06 Stage of : Antepartum Temperature Route: Oral Pain Presence: None/Denies Pain Type: N/A Pain Assessment Comments: PT SLEEPING BUT EASILY AROUSED Datetime: 11/03/2018 00:00 Labor Evaluation Frequency: NONE Monitor Mode: External Resting Tone [place]: Relaxed Pain Presence: None/Denies Pain Type: N/A Datetime: 11/02/2018 23:00 Labor Evaluation Frequency: NONE Monitor Mode: External Quality: Mild Resting Tone [place]: Relaxed Pain Presence: None/Denies Pain Type: N/A Datetime: 11/02/2018 21:59 Labor Evaluation Frequency: X5 Monitor Mode: External Duration (sec)2399: 50-70 Quality: Mild Resting Tone [place]: Relaxed Heart Rate FHR Baseline Rate: 120 Monitor Mode: External US Variability: Moderate 6-25 bpm Accelerations: 15X15 Decelerations: None Category: Category I Pain Presence: None/Denies Pain Type: N/A Datetime: 11/02/2018 21:00 Labor Evaluation Frequency: X1 Monitor Mode: External Duration (sec)2399: 50 Quality: Mild Resting Tone [place]: Relaxed Pain Presence: None/Denies Pain Type: N/A Datetime: 11/02/2018 20:55 Monitor Mode: External US Comments: APPLIED FOR NST Datetime: 11/02/2018 20:00 Labor Evaluation Frequency: X6 Monitor Mode: External Duration (sec)2399: 30-50 Quality: Mild Resting Tone [place]: Relaxed Contraction Comments: PT DENIES FEELING CRAMPING Pain Presence: None/Denies Pain Type: N/A Datetime: 11/02/2018 19:19 Stage of : Antepartum Assessment Type: Ongoing Assessment Maternal Assessment Level of Consciousness: Fully Conscious DTR's/Clonus: DTRs 2+; No Clonus Headache: Denies Blurred Vision: No Respiratory Effort: Unlabored; Regular Rhythm; Equal Expansion Breath Sounds, Left: Clear and Equal Breath Sounds, Right: Clear and Equal Nausea/Vomiting: Denies RUQ Epigastric Pain: Denies Lower Extremities Edema: None Degree: None Upper Extremities Edema: None Degree: None Facial Edema: None Temperature Route: Oral Fall Risk Assessment History of Falling: (0) No Secondary Diagnosis: (0) No Ambulatory Aid: (0) Bedrest/Nurse Assist IV Therapy: (0) No Gait: (0) Normal/Bedrest/Immobile Mental Status: (0) Oriented to Own Ability Fall Score: 0 Fall Risk Score Definition: No Risk: No action required Monitor Mode: External Contraction Comments: PT DENIES CRAMPING AT THIS TIME Comments: PT STATES + FM Pain Presence: None/Denies Pain Type: N/A Vaginal Exam Membrane Status: Intact Vaginal Bleeding: None Datetime: 11/02/2018 19:00 Labor Evaluation Frequency: x1 Monitor Mode: External Duration (sec)2399: 50 Quality: Mild Pattern: Normal: <= 5 Contractions in 10 Minutes Resting Tone [place]: Relaxed Pain Presence: None/Denies Pain Type: N/A Pain Location: Abdomen Pain Goal: 0 Datetime: 11/02/2018 18:00 Labor Evaluation Frequency: x3 Monitor Mode: External Duration (sec)2399: 50-80 Quality: Mild Pattern: Normal: <= 5 Contractions in 10 Minutes Resting Tone [place]: Relaxed Pain Presence: None/Denies Pain Type: N/A Pain Location: Abdomen Pain Goal: 0 Datetime: 11/02/2018 17:55 Stage of : Antepartum Datetime: 11/02/2018 17:00 Labor Evaluation Frequency: x2 Monitor Mode: External Duration (sec)2399: 50-80 Quality: Mild Pattern: Normal: <= 5 Contractions in 10 Minutes Resting Tone [place]: Relaxed Pain Presence: None/Denies Pain Type: N/A Pain Location: Abdomen Pain Goal: 0 Datetime: 11/02/2018 16:02 Stage of : Antepartum Temperature Route: Oral Datetime: 11/02/2018 16:00 Labor Evaluation Frequency: x7 Monitor Mode: External Duration (sec)2399: 50-80 Quality: Mild Pattern: Normal: <= 5 Contractions in 10 Minutes Resting Tone [place]: Relaxed Pain Assessment Pain Scale: 1 Pain Presence: None/Denies Pain Type: N/A Pain Location: Abdomen Pain Goal: 0 Datetime: 11/02/2018 15:27 Stage of : Antepartum Datetime: 11/02/2018 15:00 Labor Evaluation Frequency: x3 Monitor Mode: External Duration (sec)2399: 70 Quality: Mild Pattern: Normal: <= 5 Contractions in 10 Minutes Resting Tone [place]: Relaxed Pain Assessment Pain Scale: 0 Pain Presence: None/Denies Pain Type: N/A Datetime: 11/02/2018 14:00 Labor Evaluation Frequency: x6 Monitor Mode: External Duration (sec)2399: 60 Quality: Mild Pattern: Normal: <= 5 Contractions in 10 Minutes Resting Tone [place]: Relaxed Pain Assessment Pain Scale: 0 Pain Presence: None/Denies Pain Type: N/A Datetime: 11/02/2018 13:00 Labor Evaluation Frequency: 0 Monitor Mode: External Pattern: Normal: <= 5 Contractions in 10 Minutes Resting Tone [place]: Relaxed Pain Assessment Pain Scale: 0 Pain Presence: None/Denies Pain Type: N/A Datetime: 11/02/2018 12:35 Stage of : Antepartum Temperature Route: Oral Pain Assessment Pain Scale: 0 Pain Presence: None/Denies Pain Type: N/A Datetime: 11/02/2018 12:00 Labor Evaluation Frequency: 0 Monitor Mode: External Quality: Mild Pattern: Normal: <= 5 Contractions in 10 Minutes Resting Tone [place]: Relaxed Pain Assessment Pain Scale: 0 Pain Presence: None/Denies Pain Type: N/A Datetime: 11/02/2018 11:00 Labor Evaluation Frequency: x8 Monitor Mode: External Duration (sec)2399: 60 Quality: Mild Pattern: Normal: <= 5 Contractions in 10 Minutes Resting Tone [place]: Relaxed Datetime: 11/02/2018 10:00 Labor Evaluation Frequency: x1 Monitor Mode: External Duration (sec)2399: 70 Quality: Mild Pattern: Normal: <= 5 Contractions in 10 Minutes Resting Tone [place]: Relaxed Heart Rate FHR Baseline Rate: 135 Monitor Mode: External US FHR Baseline Changes: No Baseline Change Variability: Minimal - Undetectable to <=5 bpm Accelerations: 10X10 Decelerations: None Pain Assessment Pain Scale: 0 Pain Presence: None/Denies Pain Type: N/A Datetime: 11/02/2018 09:13 Monitor Mode: External Monitor Mode: External US Comments: NST started Datetime: 11/02/2018 09:12 Stage of : Antepartum Temperature Route: Oral Pain Assessment Pain Scale: 0 Pain Presence: None/Denies Pain Type: N/A Datetime: 11/02/2018 09:00 Labor Evaluation Frequency: 0 Monitor Mode: External Pattern: Normal: <= 5 Contractions in 10 Minutes Resting Tone [place]: Relaxed Pain Assessment Pain Scale: 0 Pain Presence: None/Denies Pain Type: N/A Datetime: 11/02/2018 08:50 Stage of : Antepartum Datetime: 11/02/2018 08:00 Assessment Type: Ongoing Assessment Maternal Assessment Level of Consciousness: Fully Conscious DTR's/Clonus: DTRs 2+; No Clonus Headache: Denies Blurred Vision: No Respiratory Effort: Unlabored; Regular Rhythm; Equal Expansion Breath Sounds, Left: Clear and Equal Breath Sounds, Right: Clear and Equal Nausea/Vomiting: Denies RUQ Epigastric Pain: Denies Lower Extremities Edema: None Degree: None Upper Extremities Edema: None Degree: None Facial Edema: None Fall Risk Assessment History of Falling: (0) No Secondary Diagnosis: (0) No Ambulatory Aid: (0) Bedrest/Nurse Assist IV Therapy: (0) No Gait: (0) Normal/Bedrest/Immobile Mental Status: (0) Oriented to Own Ability Fall Score: 0 Fall Risk Score Definition: No Risk: No action required Labor Evaluation Frequency: x1 Monitor Mode: External Duration (sec)2399: 80 Quality: Mild Pattern: Normal: <= 5 Contractions in 10 Minutes Resting Tone [place]: Relaxed Pain Assessment Pain Scale: 0 Pain Presence: None/Denies Pain Type: N/A Datetime: 11/02/2018 07:00 Labor Evaluation Frequency: NONE Monitor Mode: External Resting Tone [place]: Relaxed Pain Presence: None/Denies Pain Type: N/A Datetime: 11/02/2018 06:49 Stage of : Antepartum Datetime: 11/02/2018 06:00 Stage of : Antepartum Labor Evaluation Frequency: NONE Monitor Mode: External Resting Tone [place]: Relaxed Pain Presence: None/Denies Pain Type: N/A Datetime: 11/02/2018 05:00 Labor Evaluation Frequency: NONE Monitor Mode: External Resting Tone [place]: Relaxed Pain Presence: None/Denies Pain Type: N/A Datetime: 11/02/2018 04:00 Labor Evaluation Frequency: NONE Monitor Mode: External Resting Tone [place]: Relaxed Pain Presence: None/Denies Pain Type: N/A Pain Assessment Comments: PT REMAINS ASLEEP ITH EVEN UNLABORED BREATHING Datetime: 11/02/2018 03:00 Labor Evaluation Frequency: NONE Monitor Mode: External Resting Tone [place]: Relaxed Pain Presence: None/Denies Pain Type: N/A Datetime: 11/02/2018 02:00 Labor Evaluation Frequency: X1 Monitor Mode: External Duration (sec)2399: 80 Quality: Mild Resting Tone [place]: Relaxed Pain Presence: None/Denies Pain Type: N/A Pain Assessment Comments: PT LEEPING BUT EASILY AROUSED Datetime: 11/02/2018 01:00 Labor Evaluation Frequency: NONE Monitor Mode: External Resting Tone [place]: Relaxed Pain Presence: None/Denies Pain Type: N/A Datetime: 11/02/2018 00:02 Stage of : Antepartum Temperature Route: Oral Datetime: 11/02/2018 00:00 Labor Evaluation Frequency: NONE Monitor Mode: External Resting Tone [place]: Relaxed Pain Presence: None/Denies Pain Type: N/A Pain Assessment Comments: PT SLEEPING BUT EASILY AROUSED. Datetime: 11/01/2018 23:00 Labor Evaluation Frequency: NONE Monitor Mode: External Resting Tone [place]: Relaxed Pain Presence: None/Denies Pain Type: N/A Datetime: 11/01/2018 22:00 Labor Evaluation Frequency: NONE Monitor Mode: External Resting Tone [place]: Relaxed Pain Presence: None/Denies Pain Type: N/A Datetime: 11/01/2018 21:49 Stage of : Antepartum Datetime: 11/01/2018 21:36 Stage of : Antepartum Labor Evaluation Frequency: X2 Monitor Mode: External Duration (sec)2399: 50 Quality: Mild Resting Tone [place]: Relaxed Heart Rate FHR Baseline Rate: 140 Monitor Mode: External [place] Variability: Moderate 6-25 bpm Accelerations: 15X15 Decelerations: None Category: Category I Pain Presence: None/Denies Pain Type: N/A Datetime: 11/01/2018 19:57 Monitor Mode: External US Comments: APPLIED FOR NST Datetime: 11/01/2018 19:54 Labor Evaluation Frequency: NONE Monitor Mode: External Resting Tone [place]: Relaxed Pain Presence: None/Denies Pain Type: N/A Datetime: 11/01/2018 19:46 Assessment Type: Ongoing Assessment Maternal Assessment Level of Consciousness: Fully Conscious DTR's/Clonus: DTRs 2+; No Clonus Headache: Denies Blurred Vision: No Respiratory Effort: Unlabored; Regular Rhythm; Equal Expansion Breath Sounds, Left: Clear and Equal Breath Sounds, Right: Clear and Equal Nausea/Vomiting: Denies RUQ Epigastric Pain: Denies Lower Extremities Edema: None Degree: None Upper Extremities Edema: None Degree: None Facial Edema: None Temperature Route: Oral Fall Risk Assessment History of Falling: (0) No Secondary Diagnosis: (0) No Ambulatory Aid: (0) Bedrest/Nurse Assist IV Therapy: (0) No Gait: (0) Normal/Bedrest/Immobile Mental Status: (0) Oriented to Own Ability Fall Score: 0 Fall Risk Score Definition: No Risk: No action required Monitor Mode: External Contraction Comments: PT DENIES CRAMPING Comments: PT STATES + FM Pain Presence: None/Denies Pain Type: N/A Vaginal Exam Membrane Status: Intact Vaginal Bleeding: None Datetime: 11/01/2018 19:00 Labor Evaluation Frequency: NONE Monitor Mode: External Pattern: Normal: <= 5 Contractions in 10 Minutes Resting Tone [place]: Relaxed Datetime: 11/01/2018 18:00 Labor Evaluation Frequency: OCCAISONAL Monitor Mode: External Duration (sec)2399: 30-60 Quality: Mild Pattern: Normal: <= 5 Contractions in 10 Minutes Resting Tone [place]: Relaxed Datetime: 11/01/2018 17:00 Labor Evaluation Frequency: NON, IRRITABILITY NOTED Datetime: 11/01/2018 16:00 Labor Evaluation Frequency: OCCASIONAL Monitor Mode: External Duration (sec)2399: 30-40 Quality: Mild Pattern: Normal: <= 5 Contractions in 10 Minutes Resting Tone [place]: Relaxed Datetime: 11/01/2018 15:53 Temperature Route: Oral Datetime: 11/01/2018 15:00 Labor Evaluation Frequency: NONE Monitor Mode: External Pattern: Normal: <= 5 Contractions in 10 Minutes Resting Tone [place]: Relaxed Datetime: 11/01/2018 14:00 Labor Evaluation Frequency: NONE Monitor Mode: External Pattern: Normal: <= 5 Contractions in 10 Minutes Resting Tone [place]: Relaxed Datetime: 11/01/2018 13:00 Labor Evaluation Frequency: NONE Monitor Mode: External Pattern: Normal: <= 5 Contractions in 10 Minutes Resting Tone [place]: Relaxed Datetime: 11/01/2018 11:51 Labor Evaluation Frequency: NONE Monitor Mode: External Pattern: Normal: <= 5 Contractions in 10 Minutes Resting Tone [place]: Relaxed Heart Rate FHR Baseline Rate: 145 Monitor Mode: External US FHR Baseline Changes: No Baseline Change Variability: Moderate 6-25 bpm Accelerations: 15X15 Decelerations: None Category: Category I Datetime: 11/01/2018 11:00 Labor Evaluation Frequency: NONE Monitor Mode: External Pattern: Normal: <= 5 Contractions in 10 Minutes Resting Tone [place]: Relaxed Datetime: 11/01/2018 09:58 Labor Evaluation Frequency: NONE Monitor Mode: External Pattern: Normal: <= 5 Contractions in 10 Minutes Resting Tone [place]: Relaxed Datetime: 11/01/2018 09:00 Labor Evaluation Frequency: X2 Monitor Mode: External Duration (sec)2399: 50-70 Quality: Mild Pattern: Normal: <= 5 Contractions in 10 Minutes Resting Tone [place]: Relaxed Datetime: 11/01/2018 08:46 Temperature Route: Oral Datetime: 11/01/2018 08:00 Labor Evaluation Frequency: X2 Monitor Mode: External Duration (sec)2399: 50-60 Quality: Mild Pattern: Normal: <= 5 Contractions in 10 Minutes Resting Tone [place]: Relaxed Datetime: 11/01/2018 07:54 Assessment Type: Ongoing Assessment Maternal Assessment Level of Consciousness: Fully Conscious DTR's/Clonus: DTRs 2+; No Clonus Headache: Denies Blurred Vision: No Respiratory Effort: Unlabored; Regular Rhythm; Equal Expansion Breath Sounds, Left: Clear and Equal Breath Sounds, Right: Clear and Equal Nausea/Vomiting: Denies RUQ Epigastric Pain: Denies Lower Extremities Edema: None Upper Extremities Edema: None Facial Edema: None Fall Risk Assessment History of Falling: (0) No Secondary Diagnosis: (0) No Ambulatory Aid: (0) Bedrest/Nurse Assist IV Therapy: (0) No Gait: (0) Normal/Bedrest/Immobile Mental Status: (0) Oriented to Own Ability Fall Score: 0 Fall Risk Score Definition: No Risk: No action required Datetime: 11/01/2018 06:30 Labor Evaluation Frequency: 0 Monitor Mode: External Duration (sec)2399: denies Resting Tone [place]: Relaxed Pain Presence: None/Denies Datetime: 11/01/2018 05:30 Maternal Assessment Level of Consciousness: Fully Conscious Headache: Denies Blurred Vision: No Temperature Route: Oral Labor Evaluation Frequency: X4 Monitor Mode: External Duration (sec)2399: 40-60 Quality: Mild Resting Tone [place]: Relaxed Pain Presence: None/Denies Vaginal Exam Membrane Status: Intact Datetime: 11/01/2018 04:30 Labor Evaluation Frequency: OCCASIONAL Monitor Mode: External Duration (sec)2399: 40-50 Quality: Mild Resting Tone [place]: Relaxed Pain Presence: None/Denies Datetime: 11/01/2018 03:30 Labor Evaluation Frequency: 0 Monitor Mode: External Resting Tone [place]: Relaxed Pain Presence: None/Denies Datetime: 11/01/2018 02:30 Stage of : RESUMED CARE OF PT. Labor Evaluation Frequency: X3 Monitor Mode: External Duration (sec)2399: 40-60 Quality: Mild Resting Tone [place]: Relaxed Pain Presence: None/Denies Datetime: 11/01/2018 01:30 Labor Evaluation Frequency: 0 Monitor Mode: External Duration (sec)2399: DENIES Resting Tone [place]: Relaxed Pain Presence: None/Denies Datetime: 11/01/2018 00:30 Labor Evaluation Frequency: 0 Monitor Mode: External Duration (sec)2399: DENIES Resting Tone [place]: Relaxed Pain Presence: None/Denies Datetime: 10/31/2018 23:34 Labor Evaluation Frequency: OCCASIONAL Monitor Mode: External Duration (sec)2399: 40-70 Quality: Mild Resting Tone [place]: Relaxed Heart Rate FHR Baseline Rate: 145 Monitor Mode: External US Variability: Moderate 6-25 bpm Accelerations: 15X15 Decelerations: None Category: Category I Comments: NST DONE,SOME LOSS OF CONTACT AT TIMES PT WAS KEPT LONGER ON MONITOR,REACTIVE STRIP. Pain Presence: None/Denies Pain Assessment Comments: PT DENIES FEELING ANY UC'S. Datetime: 10/31/2018 22:31 Comments: PLACED NST STARTED Datetime: 10/31/2018 22:00 Labor Evaluation Frequency: X2 Monitor Mode: External Duration (sec)2399: 40-50 Quality: Mild Resting Tone [place]: Relaxed Pain Presence: None/Denies Datetime: 10/31/2018 21:00 Labor Evaluation Frequency: IRREGULAR Monitor Mode: External Duration (sec)2399: 40-50 Quality: Mild Resting Tone [place]: Relaxed Pain Presence: None/Denies Datetime: 10/31/2018 20:00 Labor Evaluation Frequency: OCCASIONAL Monitor Mode: External Duration (sec)2399: 40 Quality: Mild Resting Tone [place]: Relaxed Pain Presence: None/Denies Datetime: 10/31/2018 19:39 Stage of : Antepartum Assessment Type: Ongoing Assessment Maternal Assessment Level of Consciousness: Fully Conscious DTR's/Clonus: DTRs 2+; No Clonus Headache: Denies Blurred Vision: No Respiratory Effort: Unlabored; Regular Rhythm; Equal Expansion Breath Sounds, Left: Clear and Equal Breath Sounds, Right: Clear and Equal Nausea/Vomiting: Denies RUQ Epigastric Pain: Denies Lower Extremities Edema: None Degree: None Upper Extremities Edema: None Degree: None Facial Edema: None Temperature Route: Oral Fall Risk Assessment History of Falling: (0) No Secondary Diagnosis: (0) No Ambulatory Aid: (0) Bedrest/Nurse Assist IV Therapy: (0) No Gait: (0) Normal/Bedrest/Immobile Mental Status: (0) Oriented to Own Ability Fall Score: 0 Fall Risk Score Definition: No Risk: No action required Pain Presence: None/Denies Datetime: 10/31/2018 18:28 Assessment Type: Ongoing Assessment Datetime: 10/31/2018 18:25 Contraction Comments: toco flipped, repositioned Datetime: 10/31/2018 18:00 Labor Evaluation Frequency: 5-10 Monitor Mode: External Duration (sec)2399: 5-10 Quality: Mild Resting Tone [place]: Relaxed Contraction Comments: pt states "doesn't feel uc's" Datetime: 10/31/2018 17:00 Maternal Assessment Level of Consciousness: Fully Conscious DTR's/Clonus: DTRs 2+ Headache: Denies Blurred Vision: No Respiratory Effort: Unlabored Nausea/Vomiting: Denies RUQ Epigastric Pain: Denies Facial Edema: None Labor Evaluation Frequency: 03-28 Monitor Mode: External Duration (sec)2399: 10-30 Quality: Mild Pattern: Normal: <= 5 Contractions in 10 Minutes Resting Tone [place]: Relaxed Contraction Comments: pt doesn't feel uc's Comments: off per drs orders Pain Assessment Pain Scale: 0 Pain Presence: None/Denies Pain Relief Measures: Comfort Measures Pain Assessment Comments: "i don't feel uc's" states pt Datetime: 10/31/2018 16:30 Maternal Assessment Level of Consciousness: Fully Conscious DTR's/Clonus: DTRs 2+ Headache: Denies Blurred Vision: No Nausea/Vomiting: Denies RUQ Epigastric Pain: Denies Facial Edema: None Labor Evaluation Frequency: 5-12 Monitor Mode: External Duration (sec)2399: 10-30 Quality: Mild Resting Tone [place]: Relaxed Contraction Comments: "I don't feel the uc's" states pt Comments: off per dr orders Datetime: 10/31/2018 14:17 Comments: off to go void, end of nst Datetime: 10/31/2018 13:40 Comments: reactive for geatational age Datetime: 10/31/2018 13:39 Heart Rate FHR Baseline Rate: 145 Monitor Mode: External US Variability: Moderate 6-25 bpm Accelerations: 10X10 Decelerations: None Category: Category I Datetime: 10/31/2018 12:59 Comments: nst started Datetime: 10/31/2018 12:30 Maternal Assessment Level of Consciousness: Fully Conscious DTR's/Clonus: DTRs 2+ Headache: Denies Blurred Vision: No Nausea/Vomiting: Denies RUQ Epigastric Pain: Denies Facial Edema: None Labor Evaluation Frequency: 10-15 Monitor Mode: External Duration (sec)2399: 10-30 Quality: Mild Resting Tone [place]: Relaxed Contraction Comments: reapplied after shower Comments: off per order Pain Assessment Pain Scale: 0 Pain Presence: None/Denies Pain Type: N/A Pain Goal: 0 Pain Relief Measures: Comfort Measures Vaginal Exam Membrane Status: Intact Datetime: 10/31/2018 09:00 Maternal Assessment Level of Consciousness: Fully Conscious DTR's/Clonus: DTRs 2+ Headache: Denies Blurred Vision: No Nausea/Vomiting: Denies RUQ Epigastric Pain: Denies Facial Edema: None Datetime: 10/31/2018 08:30 Maternal Assessment Level of Consciousness: Fully Conscious DTR's/Clonus: DTRs 2+ Headache: Denies Blurred Vision: No Respiratory Effort: Unlabored Nausea/Vomiting: Denies RUQ Epigastric Pain: Denies Facial Edema: None Labor Evaluation Frequency: 15-20 Monitor Mode: External Duration (sec)2399: 10-30 Quality: Mild Resting Tone [place]: Relaxed Contraction Comments: pt encouraged to lay on side for less uc's Comments: off per orders Pain Assessment Pain Scale: 0 Pain Presence: None/Denies Pain Type: N/A Pain Goal: 0 Datetime: 10/31/2018 07:30 Assessment Type: Ongoing Assessment Maternal Assessment Level of Consciousness: Fully Conscious DTR's/Clonus: DTRs 2+; No Clonus Headache: Denies Blurred Vision: No Respiratory Effort: Unlabored; Regular Rhythm; Equal Expansion Breath Sounds, Left: Clear and Equal Breath Sounds, Right: Clear and Equal Nausea/Vomiting: Denies RUQ Epigastric Pain: Denies Lower Extremities Edema: None Upper Extremities Edema: None Facial Edema: None Fall Risk Assessment History of Falling: (0) No Secondary Diagnosis: (0) No Ambulatory Aid: (0) Bedrest/Nurse Assist IV Therapy: (0) No Gait: (0) Normal/Bedrest/Immobile Mental Status: (0) Oriented to Own Ability Fall Score: 0 Fall Risk Score Definition: No Risk: No action required Datetime: 10/31/2018 06:00 Labor Evaluation Frequency: X1 Monitor Mode: External Duration (sec)2399: 50 Quality: Mild Resting Tone [place]: Relaxed Pain Presence: None/Denies Datetime: 10/31/2018 05:35 Maternal Assessment Level of Consciousness: Fully Conscious Headache: Denies Blurred Vision: No Temperature Route: Oral Pain Presence: None/Denies Datetime: 10/31/2018 05:00 Labor Evaluation Frequency: 0 Monitor Mode: External Duration (sec)2399: DENIES Resting Tone [place]: Relaxed Pain Presence: None/Denies Datetime: 10/31/2018 04:00 Labor Evaluation Frequency: 0 Monitor Mode: External Resting Tone [place]: Relaxed Datetime: 10/31/2018 03:15 Pain Presence: None/Denies Datetime: 10/31/2018 03:00 Labor Evaluation Frequency: 0 Monitor Mode: External Resting Tone [place]: Relaxed Heart Rate FHR Baseline Rate: 135 Monitor Mode: External US Variability: Moderate 6-25 bpm Accelerations: 15X15 Decelerations: None Category: Category I Datetime: 10/31/2018 02:00 Labor Evaluation Frequency: 0 Monitor Mode: External Duration (sec)2399: DENIES Resting Tone [place]: Relaxed Heart Rate FHR Baseline Rate: 140 Monitor Mode: External US Variability: Moderate 6-25 bpm Accelerations: 10X10 Decelerations: None Category: Category I Pain Presence: None/Denies Datetime: 10/31/2018 01:00 Labor Evaluation Frequency: 0 Monitor Mode: External Duration (sec)2399: denies Resting Tone [place]: Relaxed Heart Rate FHR Baseline Rate: 135 Monitor Mode: External US Variability: Moderate 6-25 bpm Accelerations: 10X10 Decelerations: None Category: Category I Pain Presence: None/Denies Datetime: 10/31/2018 00:00 Labor Evaluation Frequency: 0 Monitor Mode: External Duration (sec)2399: denies Resting Tone [place]: Relaxed Heart Rate FHR Baseline Rate: 140 Monitor Mode: External US Variability: Moderate 6-25 bpm Accelerations: 15X15 Decelerations: None Category: Category I Pain Presence: None/Denies Datetime: 10/30/2018 23:00 Labor Evaluation Frequency: 0 Monitor Mode: External Duration (sec)2399: DENIES Resting Tone [place]: Relaxed Heart Rate FHR Baseline Rate: 140 Monitor Mode: External US Variability: Moderate 6-25 bpm Accelerations: 15X15 Decelerations: None Category: Category I Datetime: 10/30/2018 21:58 Labor Evaluation Frequency: 0 Monitor Mode: External Resting Tone [place]: Relaxed Heart Rate FHR Baseline Rate: 140 Monitor Mode: External US Variability: Moderate 6-25 bpm Accelerations: 15X15 Decelerations: None Category: Category I Pain Presence: None/Denies Datetime: 10/30/2018 21:00 Labor Evaluation Frequency: OCCASIONAL Monitor Mode: External Duration (sec)2399: 40-50 Quality: Mild Resting Tone [place]: Relaxed Heart Rate FHR Baseline Rate: 140 Monitor Mode: External US Variability: Moderate 6-25 bpm Accelerations: 15X15 Decelerations: None Category: Category I Comments: LOSS OF CONTACT AT TIMES DUE TO MATERNAL MOVEMENTS. Pain Assessment Pain Scale: 3 Pain Presence: Intermittent Pain Goal: 3 Datetime: 10/30/2018 20:00 Labor Evaluation Frequency: OCCASIONAL Monitor Mode: External Duration (sec)2399: 40-50 Quality: Mild Resting Tone [place]: Relaxed Heart Rate FHR Baseline Rate: 135 Monitor Mode: External US Variability: Moderate 6-25 bpm Accelerations: 10X10 Decelerations: None Category: Category I Pain Assessment Pain Scale: 3 Pain Presence: Intermittent Pain Goal: 3 Pain Relief Measures: Comfort Measures Datetime: 10/30/2018 19:40 Stage of : Antepartum Assessment Type: Ongoing Assessment Maternal Assessment Level of Consciousness: Fully Conscious DTR's/Clonus: DTRs 2+; No Clonus Headache: Denies Blurred Vision: No Respiratory Effort: Unlabored; Regular Rhythm; Equal Expansion Breath Sounds, Left: Clear and Equal Breath Sounds, Right: Clear and Equal Nausea/Vomiting: Denies RUQ Epigastric Pain: Denies Lower Extremities Edema: None Degree: None Upper Extremities Edema: None Degree: None Facial Edema: None Temperature Route: Oral Fall Risk Assessment History of Falling: (0) No Secondary Diagnosis: (0) No Ambulatory Aid: (0) Bedrest/Nurse Assist IV Therapy: (0) No Gait: (0) Normal/Bedrest/Immobile Mental Status: (0) Oriented to Own Ability Fall Score: 0 Fall Risk Score Definition: No Risk: No action required Pain Assessment Pain Scale: 3 Pain Presence: Intermittent Pain Type: Contraction Pain Location: Abdomen Pain Goal: 3 Pain Relief Measures: Comfort Measures Datetime: 10/30/2018 17:14 Labor Evaluation Frequency: 0 Monitor Mode: External Pattern: Normal: <= 5 Contractions in 10 Minutes Resting Tone [place]: Relaxed Heart Rate FHR Baseline Rate: 140 Monitor Mode: External US FHR Baseline Changes: No Baseline Change Variability: Moderate 6-25 bpm Accelerations: 10X10 Decelerations: None Category: Category I Datetime: 10/30/2018 17:11 Stage of : Antepartum Datetime: 10/30/2018 16:02 Stage of : Antepartum Temperature Route: Oral Pain Assessment Pain Scale: 0 Pain Presence: None/Denies Pain Goal: 0 Datetime: 10/30/2018 12:31 Stage of : Antepartum Temperature Route: Oral Pain Assessment Pain Scale: 0 Pain Presence: None/Denies Pain Goal: 0 Datetime: 10/30/2018 10:00 Labor Evaluation Frequency: 0 Monitor Mode: External Pattern: Normal: <= 5 Contractions in 10 Minutes Resting Tone [place]: Relaxed Heart Rate FHR Baseline Rate: 130 Monitor Mode: External US FHR Baseline Changes: No Baseline Change Variability: Moderate 6-25 bpm Accelerations: 10X10 Decelerations: None Category: Category I Datetime: 10/30/2018 08:13 Labor Evaluation Frequency: 0 Monitor Mode: External Pattern: Normal: <= 5 Contractions in 10 Minutes Heart Rate FHR Baseline Rate: 140 Monitor Mode: External US FHR Baseline Changes: No Baseline Change Variability: Moderate 6-25 bpm Accelerations: 10X10 Decelerations: None Datetime: 10/30/2018 08:08 Stage of : Antepartum Temperature Route: Oral Pain Assessment Pain Scale: 0 Pain Presence: None/Denies Pain Goal: 0 Datetime: 10/30/2018 07:20 Stage of : Antepartum Datetime: 10/30/2018 06:25 Stage of : Antepartum Datetime: 10/30/2018 04:22 Stage of : Antepartum Temperature Route: Oral Contraction Comments: PT DENIES CRAMPING Comments: PT STATES + FM Pain Presence: None/Denies Pain Type: N/A Vaginal Exam Membrane Status: Intact Vaginal Bleeding: None Datetime: 10/30/2018 02:15 Stage of : Antepartum Pain Presence: None/Denies Pain Type: N/A Pain Assessment Comments: PT SLEEPING WITH EVEN UNLABORED BREATHING. Datetime: 10/30/2018 00:34 Stage of : Antepartum Temperature Route: Oral Contraction Comments: PT DENIES CRAMPING Comments: PT STATES + FM Pain Presence: None/Denies Pain Type: N/A Vaginal Exam Membrane Status: PT DENIES LEAKING Vaginal Bleeding: PT DENIES BLEEDING Datetime: 10/29/2018 22:04 Stage of : Antepartum Labor Evaluation Frequency: X1 Monitor Mode: External Duration (sec)2399: 40 Quality: Mild Resting Tone [place]: Relaxed Heart Rate FHR Baseline Rate: 130 Monitor Mode: External US Variability: Moderate 6-25 bpm Accelerations: 10X10 Decelerations: None Category: Category I Pain Presence: None/Denies Pain Type: N/A Datetime: 10/29/2018 21:04 Monitor Mode: External Contraction Comments: APPLIED FOR NST Monitor Mode: External US Comments: APPLIED FOR NST Datetime: 10/29/2018 21:00 Stage of : Antepartum Datetime: 10/29/2018 19:30 Stage of : Antepartum Assessment Type: Ongoing Assessment Maternal Assessment Level of Consciousness: Fully Conscious DTR's/Clonus: DTRs 2+; No Clonus Headache: Denies Blurred Vision: No Respiratory Effort: Unlabored; Regular Rhythm; Equal Expansion Breath Sounds, Left: Clear and Equal Breath Sounds, Right: Clear and Equal Nausea/Vomiting: Denies RUQ Epigastric Pain: Denies Lower Extremities Edema: None Degree: None Upper Extremities Edema: None Degree: None Facial Edema: None Temperature Route: Oral Fall Risk Assessment History of Falling: (0) No Secondary Diagnosis: (0) No Ambulatory Aid: (0) Bedrest/Nurse Assist IV Therapy: (0) No Gait: (0) Normal/Bedrest/Immobile Mental Status: (0) Oriented to Own Ability Fall Score: 0 Fall Risk Score Definition: No Risk: No action required Contraction Comments: PT DENIES CRAMPING Comments: PT STATES + FM Pain Presence: None/Denies Pain Type: N/A Vaginal Exam Membrane Status: Intact Vaginal Bleeding: None Datetime: 10/29/2018 18:05 Stage of : Antepartum Maternal Assessment Level of Consciousness: Fully Conscious Headache: Denies Blurred Vision: No Nausea/Vomiting: Denies RUQ Epigastric Pain: Denies Pain Presence: None/Denies Datetime: 10/29/2018 17:30 Stage of : Antepartum Maternal Assessment Level of Consciousness: Fully Conscious Headache: Denies Nausea/Vomiting: Denies RUQ Epigastric Pain: Denies Resting Tone [place]: Relaxed Pain Assessment Pain Scale: 0 Pain Presence: None/Denies Vaginal Bleeding: None Datetime: 10/29/2018 16:30 Stage of : Antepartum Maternal Assessment Level of Consciousness: Fully Conscious Headache: Denies Nausea/Vomiting: Denies RUQ Epigastric Pain: Denies Resting Tone [place]: Relaxed Pain Assessment Pain Scale: 0 Pain Presence: None/Denies Vaginal Bleeding: None Datetime: 10/29/2018 15:24 Stage of : Antepartum Maternal Assessment Level of Consciousness: Fully Conscious Headache: Denies Blurred Vision: No Respiratory Effort: Unlabored Nausea/Vomiting: Denies RUQ Epigastric Pain: Denies Temperature Route: Oral Resting Tone [place]: Relaxed Comments: pt. acknowledges movement ega 27.1 Pain Assessment Pain Scale: 0 Pain Presence: None/Denies Vaginal Exam Membrane Status: Intact (Annotations: pt. denies srom or lof) Vaginal Bleeding: None Datetime: 10/29/2018 14:39 Resting Tone [place]: Relaxed Pain Presence: None/Denies Datetime: 10/29/2018 14:26 Pain Presence: None/Denies Datetime: 10/29/2018 14:19 Pain Presence: None/Denies Datetime: 10/29/2018 13:47 RUQ Epigastric Pain: Denies Labor Evaluation Frequency: 0/hr Monitor Mode: External Heart Rate FHR Baseline Rate: 125 Monitor Mode: External US Variability: Moderate 6-25 bpm Accelerations: 15X15 Decelerations: None Datetime: 10/29/2018 13:36 Maternal Assessment Level of Consciousness: Fully Conscious DTR's/Clonus: DTRs 2+ Headache: Denies Blurred Vision: No Respiratory Effort: Unlabored Breath Sounds, Left: Clear and Equal Breath Sounds, Right: Clear and Equal Nausea/Vomiting: Denies RUQ Epigastric Pain: Denies Resting Tone [place]: Relaxed Monitor Mode: External US Datetime: 10/29/2018 11:51 Maternal Assessment Level of Consciousness: Fully Conscious DTR's/Clonus: DTRs 2+ Headache: Denies Blurred Vision: No Respiratory Effort: Unlabored Nausea/Vomiting: Denies RUQ Epigastric Pain: Denies Labor Evaluation Frequency: 0 Monitor Mode: External Resting Tone [place]: Relaxed Heart Rate FHR Baseline Rate: 130 Monitor Mode: External US Variability: Moderate 6-25 bpm Accelerations: 15X15 Decelerations: None Pain Presence: None/Denies Datetime: 10/29/2018 11:14 Labor Evaluation Frequency: 0/hr Monitor Mode: External Resting Tone [place]: Relaxed Heart Rate FHR Baseline Rate: 125 Monitor Mode: External US Variability: Moderate 6-25 bpm Datetime: 10/29/2018 10:45 Stage of : Antepartum Maternal Assessment Level of Consciousness: Fully Conscious Headache: Denies Blurred Vision: No Respiratory Effort: Unlabored Nausea/Vomiting: Denies RUQ Epigastric Pain: Present Monitor Mode: External Resting Tone [place]: Relaxed Pain Presence: None/Denies Datetime: 10/29/2018 09:31 Stage of : Antepartum Temperature Route: Oral Datetime: 10/29/2018 09:27 Maternal Assessment Level of Consciousness: Fully Conscious DTR's/Clonus: DTRs 2+ Headache: Denies Blurred Vision: No Respiratory Effort: Unlabored Breath Sounds, Left: Clear and Equal Breath Sounds, Right: Clear and Equal Nausea/Vomiting: Denies RUQ Epigastric Pain: Denies Monitor Mode: External Resting Tone [place]: Relaxed Monitor Mode: External US Pain Presence: None/Denies Datetime: 10/29/2018 08:52 Monitor Mode: External Resting Tone [place]: Relaxed Comments: loss of contact pt. high fowlers for eating breakfast Vaginal Exam Membrane Status: Intact Datetime: 10/29/2018 08:51 Pain Presence: None/Denies Datetime: 10/29/2018 06:30 Maternal Assessment Level of Consciousness: Fully Conscious DTR's/Clonus: DTRs 2+ Labor Evaluation Frequency: 2/HR WITH IRRIT Monitor Mode: External Duration (sec)2399: 40-50 Quality: Mild Pattern: Normal: <= 5 Contractions in 10 Minutes Resting Tone [place]: Relaxed Heart Rate FHR Baseline Rate: 130 Monitor Mode: External US FHR Baseline Changes: No Baseline Change Variability: Minimal - Undetectable to <=5 bpm Accelerations: None Decelerations: None Category: Category II Pain Presence: None/Denies Datetime: 10/29/2018 05:32 Labor Evaluation Frequency: NONE Monitor Mode: External Pattern: Normal: <= 5 Contractions in 10 Minutes Resting Tone [place]: Relaxed Heart Rate FHR Baseline Rate: 120 Monitor Mode: External US FHR Baseline Changes: No Baseline Change Variability: Minimal - Undetectable to <=5 bpm Accelerations: 10X10 Decelerations: None Category: Category II Datetime: 10/29/2018 04:30 DTR's/Clonus: DTRs 2+ Respiratory Effort: Unlabored; Regular Rhythm Breath Sounds, Left: Clear and Equal Breath Sounds, Right: Clear and Equal Labor Evaluation Frequency: NONE Monitor Mode: External Pattern: Normal: <= 5 Contractions in 10 Minutes Resting Tone [place]: Relaxed Heart Rate FHR Baseline Rate: 135 Monitor Mode: External US FHR Baseline Changes: No Baseline Change Variability: Minimal - Undetectable to <=5 bpm Accelerations: 10X10 Decelerations: None Category: Category II Datetime: 10/29/2018 03:22 Labor Evaluation Frequency: NONE Monitor Mode: External Pattern: Normal: <= 5 Contractions in 10 Minutes Resting Tone [place]: Relaxed Heart Rate FHR Baseline Rate: 125 Monitor Mode: External US FHR Baseline Changes: No Baseline Change Variability: Minimal - Undetectable to <=5 bpm Accelerations: 10X10 Decelerations: None Category: Category II Datetime: 10/29/2018 02:30 DTR's/Clonus: DTRs 2+ Respiratory Effort: Unlabored; Regular Rhythm Breath Sounds, Left: Clear and Equal Breath Sounds, Right: Clear and Equal Labor Evaluation Frequency: NONE Monitor Mode: External Pattern: Normal: <= 5 Contractions in 10 Minutes Resting Tone [place]: Relaxed Heart Rate FHR Baseline Rate: 135 Monitor Mode: External US FHR Baseline Changes: No Baseline Change Variability: Minimal - Undetectable to <=5 bpm Accelerations: 10X10 Decelerations: None Category: Category II Datetime: 10/29/2018 01:39 Stage of : Antepartum Headache: Denies Blurred Vision: No Respiratory Effort: Unlabored Labor Evaluation Frequency: 0 Monitor Mode: External Duration (sec)2399: 0 Pattern: Normal: <= 5 Contractions in 10 Minutes Resting Tone [place]: Relaxed Heart Rate FHR Baseline Rate: 130 Monitor Mode: External US FHR Baseline Changes: No Baseline Change Variability: Moderate 6-25 bpm Accelerations: 10X10 Decelerations: None Category: Category I Pain Assessment Pain Scale: 0 Pain Presence: None/Denies Pain Type: N/A Vaginal Exam Membrane Status: Intact Datetime: 10/29/2018 00:31 Stage of : Antepartum Assessment Type: Ongoing Assessment Maternal Assessment Level of Consciousness: Fully Conscious Maternal Assessment Level of Consciousness: Fully Conscious DTR's/Clonus: DTRs 2+; No Clonus DTR's/Clonus: DTRs 2+ Headache: Denies Headache: Denies Blurred Vision: No Blurred Vision: No Respiratory Effort: Unlabored; Regular Rhythm; Equal Expansion Respiratory Effort: Unlabored Breath Sounds, Left: Clear and Equal Breath Sounds, Left: Clear and Equal Breath Sounds, Right: Clear and Equal Breath Sounds, Right: Clear and Equal Nausea/Vomiting: Denies Nausea/Vomiting: Denies RUQ Epigastric Pain: Denies RUQ Epigastric Pain: Denies Lower Extremities Edema: None Degree: None Upper Extremities Edema: None Degree: None Facial Edema: None Facial Edema: None Fall Risk Assessment History of Falling: (0) No Secondary Diagnosis: (0) No Ambulatory Aid: (0) Bedrest/Nurse Assist IV Therapy: (20) Yes Gait: (0) Normal/Bedrest/Immobile Mental Status: (0) Oriented to Own Ability Fall Score: 20 Fall Risk Score Definition: No Risk: No action required Labor Evaluation Frequency: NONE Monitor Mode: External Pattern: Normal: <= 5 Contractions in 10 Minutes Resting Tone [place]: Relaxed Heart Rate FHR Baseline Rate: 125 Monitor Mode: External US FHR Baseline Changes: No Baseline Change Variability: Moderate 6-25 bpm Accelerations: 15X15 Decelerations: None Category: Category I Pain Presence: None/Denies Vaginal Exam Membrane Status: Intact Datetime: 10/29/2018 00:30 Stage of : Antepartum Datetime: 10/28/2018 23:19 Stage of : Antepartum Maternal Assessment Level of Consciousness: Fully Conscious DTR's/Clonus: DTRs 2+ Headache: Denies Blurred Vision: No Respiratory Effort: Unlabored Breath Sounds, Left: Clear and Equal Breath Sounds, Right: Clear and Equal Nausea/Vomiting: Denies RUQ Epigastric Pain: Denies Facial Edema: None Labor Evaluation Frequency: 0 Monitor Mode: External Duration (sec)2399: 0 Pattern: Normal: <= 5 Contractions in 10 Minutes Resting Tone [place]: Relaxed Heart Rate FHR Baseline Rate: 125 Monitor Mode: External US FHR Baseline Changes: No Baseline Change Variability: Moderate 6-25 bpm Accelerations: 10X10 Decelerations: None Category: Category I Pain Presence: None/Denies Pain Type: N/A Vaginal Exam Membrane Status: Intact Datetime: 10/28/2018 22:29 Stage of : Antepartum Headache: Denies Blurred Vision: No Respiratory Effort: Unlabored Breath Sounds, Left: Clear and Equal Breath Sounds, Right: Clear and Equal Labor Evaluation Frequency: 0 Monitor Mode: External Duration (sec)2399: 0 Pattern: Normal: <= 5 Contractions in 10 Minutes Resting Tone [place]: Relaxed Heart Rate FHR Baseline Rate: 125 Monitor Mode: External US FHR Baseline Changes: No Baseline Change Variability: Moderate 6-25 bpm Accelerations: 10X10 Decelerations: None Pain Assessment Pain Scale: 0 Pain Presence: None/Denies Pain Type: N/A Datetime: 10/28/2018 21:29 Stage of : Antepartum Maternal Assessment Level of Consciousness: Fully Conscious Headache: Denies Blurred Vision: No Respiratory Effort: Unlabored Breath Sounds, Left: Clear and Equal Breath Sounds, Right: Clear and Equal Nausea/Vomiting: Denies RUQ Epigastric Pain: Denies Facial Edema: None Labor Evaluation Frequency: 0 Monitor Mode: External Duration (sec)2399: 0 Pattern: Normal: <= 5 Contractions in 10 Minutes Resting Tone [place]: Relaxed Heart Rate FHR Baseline Rate: 125 Monitor Mode: External US FHR Baseline Changes: No Baseline Change Variability: Moderate 6-25 bpm Accelerations: 10X10 Decelerations: None Category: Category I Pain Assessment Pain Scale: 0 Pain Presence: None/Denies Pain Type: N/A Vaginal Exam Membrane Status: Intact Datetime: 10/28/2018 20:50 Stage of : Antepartum Datetime: 10/28/2018 19:57 Stage of : Antepartum Maternal Assessment Level of Consciousness: Fully Conscious DTR's/Clonus: DTRs 2+ Headache: Denies Blurred Vision: No Respiratory Effort: Unlabored Breath Sounds, Left: Clear and Equal Breath Sounds, Right: Clear and Equal Nausea/Vomiting: Denies RUQ Epigastric Pain: Denies Facial Edema: None Labor Evaluation Frequency: OCCAS UTERINE IRRIT Monitor Mode: External Duration (sec)2399: 10 Pattern: Normal: <= 5 Contractions in 10 Minutes Resting Tone [place]: Relaxed Interventions: Side to Side Contraction Comments: PT STATES NO PAIN OR PRESSURE FELT Heart Rate FHR Baseline Rate: 125 Monitor Mode: External US FHR Baseline Changes: No Baseline Change Variability: Moderate 6-25 bpm Accelerations: 10X10 Decelerations: None Category: Category I Pain Assessment Pain Scale: 0 Pain Presence: None/Denies Pain Type: N/A Pain Goal: 2 Datetime: 10/28/2018 19:00 Stage of : Antepartum Maternal Assessment Level of Consciousness: Fully Conscious Headache: Denies Breath Sounds, Left: Clear and Equal Breath Sounds, Right: Clear and Equal Nausea/Vomiting: Denies RUQ Epigastric Pain: Denies Labor Evaluation Frequency: 0 Monitor Mode: External Pattern: Normal: <= 5 Contractions in 10 Minutes Resting Tone [place]: Relaxed Heart Rate FHR Baseline Rate: 120 Monitor Mode: External US FHR Baseline Changes: No Baseline Change Variability: Moderate 6-25 bpm Accelerations: 10X10 Decelerations: None Pain Assessment Pain Scale: 0 Pain Presence: None/Denies Pain Type: N/A Pain Goal: 3 Datetime: 10/28/2018 18:00 Stage of : Antepartum Labor Evaluation Frequency: x1 Monitor Mode: External Duration (sec)2399: 60 Quality: Mild Pattern: Normal: <= 5 Contractions in 10 Minutes Resting Tone [place]: Relaxed Heart Rate FHR Baseline Rate: 120 Monitor Mode: External US FHR Baseline Changes: No Baseline Change Variability: Moderate 6-25 bpm Accelerations: 10X10 Decelerations: None Pain Assessment Pain Scale: 0 Pain Presence: None/Denies Pain Type: N/A Pain Goal: 3 Datetime: 10/28/2018 17:46 Stage of : Antepartum Datetime: 10/28/2018 17:00 Stage of : Antepartum Maternal Assessment Level of Consciousness: Fully Conscious DTR's/Clonus: DTRs 1+ Headache: Denies Breath Sounds, Left: Clear and Equal Breath Sounds, Right: Clear and Equal Nausea/Vomiting: Denies RUQ Epigastric Pain: Denies Labor Evaluation Frequency: 0 Monitor Mode: External Pattern: Normal: <= 5 Contractions in 10 Minutes Resting Tone [place]: Relaxed Heart Rate FHR Baseline Rate: 120 Monitor Mode: External US FHR Baseline Changes: No Baseline Change Variability: Moderate 6-25 bpm Accelerations: 15X15 Decelerations: None Pain Assessment Pain Scale: 0 Pain Presence: None/Denies Pain Type: N/A Pain Goal: 3 Datetime: 10/28/2018 16:22 Stage of : Antepartum Temperature Route: Oral Datetime: 10/28/2018 16:00 Stage of : Antepartum Labor Evaluation Frequency: 0 Monitor Mode: External Pattern: Normal: <= 5 Contractions in 10 Minutes Resting Tone [place]: Relaxed Heart Rate FHR Baseline Rate: 120 Monitor Mode: External US FHR Baseline Changes: No Baseline Change Variability: Moderate 6-25 bpm Accelerations: 10X10 Decelerations: None Pain Assessment Pain Scale: 0 Pain Presence: None/Denies Pain Type: N/A Pain Goal: 3 Datetime: 10/28/2018 15:00 Stage of : Antepartum Maternal Assessment Level of Consciousness: Fully Conscious DTR's/Clonus: DTRs 2+ Headache: Denies Breath Sounds, Left: Clear and Equal Breath Sounds, Right: Clear and Equal Nausea/Vomiting: Denies RUQ Epigastric Pain: Denies Labor Evaluation Frequency: 0 Monitor Mode: External Pattern: Normal: <= 5 Contractions in 10 Minutes Resting Tone [place]: Relaxed Heart Rate FHR Baseline Rate: 125 Monitor Mode: External US FHR Baseline Changes: No Baseline Change Variability: Minimal - Undetectable to <=5 bpm Accelerations: 10X10 Decelerations: None Pain Assessment Pain Scale: 0 Pain Presence: None/Denies Pain Type: N/A Pain Goal: 3 Datetime: 10/28/2018 14:00 Stage of : Antepartum Labor Evaluation Frequency: 0 Monitor Mode: External Pattern: Normal: <= 5 Contractions in 10 Minutes Resting Tone [place]: Relaxed Heart Rate FHR Baseline Rate: 125 Monitor Mode: External US FHR Baseline Changes: No Baseline Change Variability: Minimal - Undetectable to <=5 bpm Accelerations: 10X10 Decelerations: None Pain Assessment Pain Scale: 1 Pain Presence: Intermittent Pain Type: Contraction Pain Location: Abdomen Pain Goal: 3 Datetime: 10/28/2018 13:00 Stage of : Antepartum Maternal Assessment Level of Consciousness: Fully Conscious DTR's/Clonus: DTRs 1+ Headache: Denies Breath Sounds, Left: Clear and Equal Breath Sounds, Right: Clear and Equal Nausea/Vomiting: Denies RUQ Epigastric Pain: Denies Labor Evaluation Frequency: X2 Monitor Mode: External Duration (sec)2399: 70 Quality: Mild Pattern: Normal: <= 5 Contractions in 10 Minutes Resting Tone [place]: Relaxed Heart Rate FHR Baseline Rate: 125 Monitor Mode: External US FHR Baseline Changes: No Baseline Change Variability: Minimal - Undetectable to <=5 bpm Accelerations: 10X10 Decelerations: None Pain Assessment Pain Scale: 1 Pain Presence: Intermittent Pain Type: Contraction Pain Location: Abdomen Pain Goal: 3 Datetime: 10/28/2018 12:22 Temperature Route: Oral Datetime: 10/28/2018 12:00 Stage of : Antepartum Labor Evaluation Frequency: X1 Monitor Mode: External Duration (sec)2399: 70 Quality: Mild Pattern: Normal: <= 5 Contractions in 10 Minutes Resting Tone [place]: Relaxed Heart Rate FHR Baseline Rate: 125 Monitor Mode: External US FHR Baseline Changes: No Baseline Change Variability: Minimal - Undetectable to <=5 bpm Decelerations: None Pain Assessment Pain Scale: 1 Pain Presence: Intermittent Pain Type: Contraction Pain Location: Abdomen Pain Goal: 3 Datetime: 10/28/2018 11:00 Stage of : Antepartum Maternal Assessment Level of Consciousness: Fully Conscious DTR's/Clonus: DTRs 1+ Headache: Denies Breath Sounds, Left: Clear and Equal Breath Sounds, Right: Clear and Equal Nausea/Vomiting: Denies RUQ Epigastric Pain: Denies Labor Evaluation Frequency: x2 Monitor Mode: External Duration (sec)2399: 110 Quality: Mild Pattern: Normal: <= 5 Contractions in 10 Minutes Resting Tone [place]: Relaxed Heart Rate FHR Baseline Rate: 125 Monitor Mode: External US FHR Baseline Changes: No Baseline Change Variability: Minimal - Undetectable to <=5 bpm Accelerations: 10X10 Decelerations: None Pain Assessment Pain Scale: 1 Pain Presence: Intermittent Pain Type: Contraction Pain Location: Abdomen Pain Goal: 3 Datetime: 10/28/2018 10:01 Labor Evaluation Frequency: x1 Duration (sec)2399: 110 Quality: Mild Pattern: Normal: <= 5 Contractions in 10 Minutes Resting Tone [place]: Relaxed Heart Rate FHR Baseline Rate: 125 Monitor Mode: External US Variability: Minimal - Undetectable to <=5 bpm Decelerations: None Category: Category II Pain Assessment Pain Scale: 3 Pain Presence: Intermittent Pain Type: Contraction Pain Location: Abdomen Pain Goal: 3 Datetime: 10/28/2018 09:00 Maternal Assessment Level of Consciousness: Fully Conscious DTR's/Clonus: DTRs 2+ Headache: Denies Blurred Vision: No Nausea/Vomiting: Denies RUQ Epigastric Pain: Denies Facial Edema: None Labor Evaluation Frequency: 2-7 Monitor Mode: External Duration (sec)2399: 50-70 Quality: Mild Pattern: Normal: <= 5 Contractions in 10 Minutes Resting Tone [place]: Relaxed Contraction Comments: uc with irritability Heart Rate FHR Baseline Rate: 125 Monitor Mode: External US Variability: Minimal - Undetectable to <=5 bpm Category: Category II Pain Assessment Pain Scale: 3 Pain Presence: Intermittent Pain Type: Contraction Pain Location: Abdomen Pain Goal: 3 Datetime: 10/28/2018 08:01 Maternal Assessment Level of Consciousness: Fully Conscious DTR's/Clonus: DTRs 2+ Headache: Denies Blurred Vision: No Nausea/Vomiting: Denies RUQ Epigastric Pain: Denies Facial Edema: None Labor Evaluation Frequency: 2-3 Monitor Mode: External Duration (sec)2399: 50-60 Quality: Mild Pattern: Normal: <= 5 Contractions in 10 Minutes Resting Tone [place]: Relaxed Heart Rate FHR Baseline Rate: 125 Monitor Mode: External US Variability: Minimal - Undetectable to <=5 bpm Decelerations: None Category: Category II Pain Assessment Pain Scale: 3 Pain Presence: Intermittent Pain Type: Cramping; Contraction Pain Location: Abdomen Pain Goal: 3 Datetime: 10/28/2018 07:48 Assessment Type: Ongoing Assessment Maternal Assessment Level of Consciousness: Fully Conscious DTR's/Clonus: DTRs 2+; No Clonus Headache: Denies Blurred Vision: No Respiratory Effort: Unlabored; Regular Rhythm; Equal Expansion Breath Sounds, Left: Clear and Equal Breath Sounds, Right: Clear and Equal Nausea/Vomiting: Denies RUQ Epigastric Pain: Denies Lower Extremities Edema: None Degree: None Upper Extremities Edema: None Degree: None Facial Edema: None Fall Risk Assessment History of Falling: (0) No Secondary Diagnosis: (0) No Ambulatory Aid: (0) Bedrest/Nurse Assist IV Therapy: (20) Yes Gait: (0) Normal/Bedrest/Immobile Mental Status: (0) Oriented to Own Ability Fall Score: 20 Fall Risk Score Definition: No Risk: No action required Datetime: 10/28/2018 06:40 Stage of : Antepartum Labor Evaluation Frequency: IRREGULAR Monitor Mode: External Duration (sec)2399: 40-60 Quality: Mild Resting Tone [place]: Relaxed Datetime: 10/28/2018 05:40 Stage of : Antepartum Labor Evaluation Frequency: IRREGULAR Monitor Mode: External Duration (sec)2399: 40-60 Quality: Mild Resting Tone [place]: Relaxed Datetime: 10/28/2018 04:40 Stage of : Antepartum Labor Evaluation Frequency: IRREGULAR Monitor Mode: External Duration (sec)2399: 40-60 Quality: Mild Resting Tone [place]: Relaxed Datetime: 10/28/2018 03:40 Stage of : Antepartum Labor Evaluation Frequency: IRREGULAR Monitor Mode: External Duration (sec)2399: 40-60 Quality: Mild Resting Tone [place]: Relaxed Datetime: 10/28/2018 02:40 Stage of : Antepartum Labor Evaluation Frequency: IRREGULAR Monitor Mode: External Duration (sec)2399: 40-60 Quality: Mild Resting Tone [place]: Relaxed Datetime: 10/28/2018 01:40 Stage of : Antepartum Labor Evaluation Frequency: IRREGULAR Monitor Mode: External Duration (sec)2399: 40-60 Quality: Mild Resting Tone [place]: Relaxed Datetime: 10/28/2018 00:40 Stage of : Antepartum Labor Evaluation Frequency: IRREGULAR (Annotations: UC'S SPACING OUT) Monitor Mode: External Duration (sec)2399: 40-60 Quality: Mild Resting Tone [place]: Relaxed Datetime: 10/27/2018 23:40 Stage of : Antepartum Datetime: 10/27/2018 23:30 Assessment Type: Admission Assessment Vaginal Bleeding: None Maternal Assessment Level of Consciousness: Fully Conscious DTR's/Clonus: DTRs 2+; No Clonus Headache: Denies Blurred Vision: No Respiratory Effort: Unlabored; Regular Rhythm; Equal Expansion Breath Sounds, Left: Clear and Equal Breath Sounds, Right: Clear and Equal Nausea/Vomiting: Denies RUQ Epigastric Pain: Denies Facial Edema: None Temperature Route: Oral Fall Risk Assessment History of Falling: (0) No Secondary Diagnosis: (0) No Ambulatory Aid: (0) Bedrest/Nurse Assist IV Therapy: (0) No Gait: (0) Normal/Bedrest/Immobile Mental Status: (0) Oriented to Own Ability Fall Score: 0 Fall Risk Score Definition: No Risk: No action required Datetime: 10/27/2018 23:22 Stage of : Antepartum Datetime: 10/27/2018 23:00 Stage of : Antepartum Labor Evaluation Frequency: Ocassional Monitor Mode: External Duration (sec)2399: 40-60 Quality: Mild Pattern: Normal: <= 5 Contractions in 10 Minutes Resting Tone [place]: Relaxed Datetime: 10/27/2018 22:00 Stage of : Antepartum Labor Evaluation Frequency: Ocassional Monitor Mode: External Duration (sec)2399: 40-60 Quality: Mild Pattern: Normal: <= 5 Contractions in 10 Minutes Resting Tone [place]: Relaxed Datetime: 10/27/2018 21:00 Stage of : Antepartum Labor Evaluation Frequency: Irregular Monitor Mode: External Duration (sec)2399: 40-50 Quality: Mild Pattern: Normal: <= 5 Contractions in 10 Minutes Resting Tone [place]: Relaxed Datetime: 10/27/2018 20:00 Stage of : Antepartum Labor Evaluation Frequency: Irregular Monitor Mode: External Duration (sec)2399: 40-50 Quality: Mild Pattern: Normal: <= 5 Contractions in 10 Minutes Resting Tone [place]: Relaxed Datetime: 10/27/2018 18:55 Stage of : OB Triage Datetime: 10/27/2018 18:00 Labor Evaluation Frequency: 5-6 Monitor Mode: External Duration (sec)2399: 50-60 Quality: Mild Pattern: Normal: <= 5 Contractions in 10 Minutes Resting Tone [place]: Relaxed Comments: REMOVED PER ORDER Pain Assessment Pain Scale: 0 Pain Presence: None/Denies Pain Type: N/A Pain Goal: 3 Pain Relief Measures: Comfort Measures Datetime: 10/27/2018 17:03 Labor Evaluation Frequency: 1-3 Monitor Mode: External Duration (sec)2399: 20-30 Quality: Mild Pattern: Normal: <= 5 Contractions in 10 Minutes Resting Tone [place]: Relaxed Comments: removed due to gestational age and orders Pain Assessment Pain Scale: 0 Pain Presence: None/Denies Pain Type: N/A Pain Goal: 3 Pain Relief Measures: Comfort Measures Datetime: 10/27/2018 16:29 Stage of : OB Triage Datetime: 10/27/2018 16:01 Labor Evaluation Frequency: 2-4 Monitor Mode: External Duration (sec)2399: 30-50 Quality: Mild Pattern: Normal: <= 5 Contractions in 10 Minutes Resting Tone [place]: Relaxed Comments: removed due to gestational age Pain Assessment Pain Scale: 0 Pain Presence: None/Denies Pain Type: N/A Pain Goal: 3 Pain Relief Measures: Comfort Measures Datetime: 10/27/2018 15:12 Stage of : OB Triage Datetime: 10/27/2018 14:59 Labor Evaluation Frequency: 1-2 Monitor Mode: External Duration (sec)2399: 30-40 Pattern: Normal: <= 5 Contractions in 10 Minutes Resting Tone [place]: Relaxed Comments: REMOVED DUE TO GESTATIONAL AGE Pain Assessment Pain Scale: 2 Pain Presence: Intermittent Pain Type: Cramping Pain Location: Perineum Pain Goal: 3 Pain Relief Measures: Comfort Measures Datetime: 10/27/2018 14:01 Labor Evaluation Frequency: 1-2 Monitor Mode: External Duration (sec)2399: 20-40 Quality: Mild Pattern: Normal: <= 5 Contractions in 10 Minutes Resting Tone [place]: Relaxed Comments: REMOVED DUE TO GESTATIONAL AGE Pain Assessment Pain Scale: 2 Pain Presence: Intermittent Pain Type: Cramping Pain Location: Perineum Pain Goal: 3 Pain Relief Measures: Comfort Measures Datetime: 10/27/2018 13:17 Stage of : OB Triage Datetime: 10/27/2018 12:55 Labor Evaluation Frequency: IRRITABILITY Monitor Mode: External Duration (sec)2399: 20-40 Pattern: Normal: <= 5 Contractions in 10 Minutes Resting Tone [place]: Relaxed Monitor Mode: External US Comments: DIFFICULT TRACING DUE TO GESTATIONAL AGE Pain Assessment Pain Scale: 2 Pain Presence: Intermittent Pain Type: Cramping Pain Location: Perineum Pain Goal: 3 Pain Relief Measures: Comfort Measures Datetime: 10/27/2018 12:08 Stage of : OB Triage Datetime: 10/27/2018 11:53 Stage of : OB Triage Assessment Type: Triage Maternal Assessment Level of Consciousness: Fully Conscious DTR's/Clonus: DTRs 2+; No Clonus Headache: Denies Blurred Vision: No Respiratory Effort: Unlabored; Regular Rhythm; Equal Expansion Breath Sounds, Left: Clear and Equal Breath Sounds, Right: Clear and Equal Nausea/Vomiting: Denies RUQ Epigastric Pain: Denies Facial Edema: None Temperature Route: Axillary Fall Risk Assessment History of Falling: (0) No Secondary Diagnosis: (0) No Ambulatory Aid: (0) Bedrest/Nurse Assist IV Therapy: (0) No Gait: (0) Normal/Bedrest/Immobile Mental Status: (0) Oriented to Own Ability Fall Score: 0 Fall Risk Score Definition: No Risk: No action required Labor Evaluation Frequency: 1-3 Monitor Mode: External Duration (sec)2399: 10-20 Quality: Mild Pattern: Normal: <= 5 Contractions in 10 Minutes Resting Tone [place]: Relaxed Heart Rate FHR Baseline Rate: 135 Monitor Mode: External US Variability: Moderate 6-25 bpm Accelerations: None Decelerations: None Category: Category I Pain Assessment Pain Scale: 4 Pain Presence: Intermittent Pain Type: Cramping Pain Location: Perineum Pain Goal: 3 Pain Relief Measures: Comfort Measures Datetime: 10/27/2018 11:52 Time of Arrival: 10/27/2018 11:07 EGA: 26.6 Arrived By: Ambulatory Arrived From: Home Chief Complaint: C/O PERINEAL PAIN THAT IS INTERMITTENT WHEN BABY MOVES, DENIES BLEEDING, LEAKING O R UC'S Movement: Present Contractions: Denies/Absent Rupture of Membranes: Denies Vaginal Bleeding: None Vaginal Discharge: Denies Recent Sexual Intercouse: Denies Abdominal Trauma: Not Applicable Patient Complaints: Cramping Time Provider Notified: 10/27/2018 12:08 Provider Notified: CYNTHIA Initial Plan: MONITOR, UA/ C_S, TERB X2, CL, ARIELA, IV HYDRATION
== END 2018-11-05 14:25 | disposition home or self-care (01) ==
LOC: EDSTATUS 12:46 → OBT 12:46 → L-D 12:46 → OBT 14:25
PROVIDERS: ATTEND Obstetrics & Gynecology
DX: O36.8330 Maternal care for abnormalities of the fetal heart rate or rhythm, third trimester, not applicable or unspecified (principal); O26.613 Liver and biliary tract disorders in pregnancy, third trimester; K83.1 Obstruction of bile duct; Z3A.28 28 weeks gestation of pregnancy
CPT/HCPCS: 76818; Z7500; G0463